=== PATIENT | female | born 1965 | race Caucasian/White ===

== ENCOUNTER 2023-04-18 07:48 | Emergency (ER) | payer BC, SELFPAY ==
[2023-04-18 07:51] VITALS: BP 133/78
[2023-04-18 08:17] VITALS: BMI 32.6
[2023-04-18] MEDS: NSS 1000 IV (09:08)
[2023-04-18] MEDS: ZOFRAN 4 MG IV (09:09)
[2023-04-18] MEDS: TORADOL 15 MG IV ×2 (09:09→11:53)
--- NOTE | 2023-04-18 09:16 | ED.GENMED ---
History of Present Illness
General
Chief Complaint: Abdominal Symptoms
Source: patient and spouse
Exam Limitations: none
Time Seen by Provider: 04/18/23 07:57
Nursing documentation reviewed up to this point in time: agreed with
Travel History
Have you had any contact with someone who has COVID-19?: No
Do you have any symptoms of coronavirus? Fever > 100 degrees, chills, cough, shortness of breath, sore throat, loss of taste or smell, muscle aches, or headache?: No
History of Present Illness
History of Present Illness:
57-year-old female with Alexandre history of migraines, kidney stones, endometriosis, asthma presenting to the emergency department today with concerns of bloody urine as well as right-sided flank pain starting this morning. Has had nausea and few
episodes of vomiting. Denies any change in bowel movements denies specific fevers chest pain or shortness of breath. Feels similar to previous episode of kidney stones.
Past History
Past History
ED Past Medical History: Asthma, Hypercholesterolemia, NIDDM and Other (Migraine headaches, Kidney stones, Diverticulosis, pseudotumor cerebri, fibromyalgia, C. difficile, irritable bowel syndrome, sleep apnea Parkinson's.)
ED Past Surgical History: Appendectomy, Cholecystectomy, , Urological (kidney stone remval) and Other (sinus surgery)
Social History
Tobacco: Non-smoker
Alcohol: None
Drug: None
Personal:
Living: with family
Employment: Employed
Family History
Family History: Hypertension and Other (Hypercholesterolemia)
Review of Systems
Review of Systems
Allergies reviewed?: Yes
All Other Systems: ROS reviewed and negative except as documented in HPI and ROS
Phy Exam
Physical Exam
Physical Exam:
GENERAL: Alert , in no apparent distress
EYE: pupils equal and reactive
NECK: Supple, no significant adenopathy.
ENT: o/p clr, mmm.
CARDIAC: Regular rate and rhythm .
LUNGS: Clear breath sounds bilaterally, no acute respiratory distress, no wheezes/rales/rhonchi
ABDOMEN: Soft, without focal tenderness, no r/g, no cvat
NEUROLOGICAL: Alert and oriented, no focal neuro deficits
SKIN: Warm and dry, skin intact.
MUSCULOSKELETAL: No edema, well perfused.
PSYCH: Normal and appropriate interaction.
Course
Orders/Labs/Results
Orders:
Orders
04/18/23 08:05
CT Abd/pel Without Iv Or Oral Urgent
Comment:
Reason For Exam: right flank pain
0.9% Sodium Chloride 1000 ml [Nss] 1,000 ml IV BOLUS
Ketorolac [Toradol] 15 mg IV NOW STA
Ondansetron Injectable [Zofran] 4 mg IV NOW STA
04/18/23 08:39
Urinalysis Reflex To Culture Urgent
Date Specimen was Collected: 04/18/23
Time Specimen was Collected: 08:16
Urine Microscopic Reflex Cult Urgent
Urine Culture Urgent
HENRIK Source: U
Specimen Description:
Date Specimen was Collected: 04/18/23
Time Specimen was Collected: 08:16
04/18/23 08:58
Complete Blood Count/With Diff Urgent
Comprehensive Metabolic Panel Urgent
Lipase Urgent
04/18/23 10:20
Morphine Sulfate 4 mg IV NOW STA
04/18/23 11:41
Ketorolac [Toradol] 15 mg IV NOW STA
Abnormal Lab Results
04/18/23 04/18/23
08:39 08:58
Hct 36.8 L %
(37.0-47.0)
Abs Immat Gran (auto) 0.1 H 10^3/uL
(0-0.05)
Absolute Neuts (auto) 8.2 H 10^3/uL
(1.4-6.5)
Immature Gran % 0.6 H %
(0-0.5)
Neutrophils % 78.2 H %
(42.2-75.2)
Lymphocytes % 14.8 L %
(20.5-51.1)
Chloride 108 H mmol/L
(98-107)
Carbon Dioxide 21 L mmol/L
(22-30)
BUN 22 H mg/dl
(7-17)
Glucose 279 H mg/dl
(70-99)
Urine Ketones Trace A
(Negative)
Ur Occult Blood Reflex 4+ A
(Negative)
Leukocyte Esterase Rfl 1+ A
(Negative)
Urine RBC >100 A /HPF
(0-2)
Urine WBC (Reflex) 11-15 A /HPF
(0-5)
Urine Bacteria (Reflex) Few A
(Negative)
Urine Glucose 1+ A
(Negative)
Urine Albumin (Reflex) 2+ A
(Neg - Trace)
04/18/23 08:58
04/18/23 08:58
Vital Signs
Initial and Last Documented VS:
Initial Vital Signs
Temp Pulse Resp BP Pulse Ox
99.2 F 78 16 133/78 97
04/18/23 07:51 04/18/23 07:51 04/18/23 07:51 04/18/23 07:51 04/18/23 07:51
Last Documented Vital Signs
Temp Pulse Resp BP Pulse Ox
99.2 F 84 16 128/70 95
04/18/23 07:51 04/18/23 10:00 04/18/23 10:00 04/18/23 10:00 04/18/23 10:45
MDM/Problems Addressed
MDM/Problems Addressed:
57-year-old female presenting to the emergency department with concerns of right-sided flank pain starting abruptly this morning additionally has had nausea vomiting and dark urine. On physical examination no specific or reproducible tenderness to
the abdomen or flank. Patient no distress vital signs normal. Patient's sugar level is elevated but otherwise no emergent findings urine with 4+ blood. CT scan confirming right-sided kidney stone in the proximal ureter. Symptoms significantly
improved after receiving Toradol and Zofran. No signs of emergent pathology. Case was discussed with patient's urologist who will see her as an outpatient tomorrow. Patient symptoms well-controlled stable for outpatient management return
precautions given.
*Critical Care Note
Total Time (30-74mins, 75-104mins- exclusive of procedures): Not Applicable
ED Attending Note
-
Portions of this chart may have been created with voice recognition software.� Occasional wrong word or��sound alike� substitutions may have occurred due to the inherent limitations of voice recognition software.
Discharge Plan
Departure
Patient Disposition: Home (Routine Discharge)
Date of Disposition: 04/18/23
Time of Disposition: 11:33
Patient with high blood pressure during this ER visit?: No
Condition: Good
Covid-19: Not Applicable
Discharge Problem:
Calculus, ureteral
Instructions: Kidney Stone, Adult ED
Prescriptions:
New
oxycodone-acetaminophen [Endocet] 5-325 mg tablet
1 tab PO Q6H PRN (Reason: Pain) Qty: 7 0RF
tamsulosin [Flomax] 0.4 mg capsule
0.4 mg PO DAILY 7 Days Qty: 7 0RF
ondansetron 4 mg tablet,disintegrating
4 mg PO Q8H PRN (Reason: nausea and vomiting) Qty: 7 0RF
No Action
hydromorphone 4 MG tablet
2 mg PO Q4HPRN PRN (Reason: migraines)
oxycodone-acetaminophen 5 MG/325 MG tablet
1 tab PO Q4HPRN PRN (Reason: severe pains)
tizanidine 4 MG tablet
4 mg PO HS
trazodone 100 MG tablet
200 - 300 mg PO HS
propranolol 20 MG tablet
20 mg PO HS
dicyclomine 10 MG capsule
10 mg PO DAILYPRN PRN (Reason: abd pains)
Dupixent Syringe 300 MG/2 ML syringe
200 mg SQ Q2W
Aimovig Autoinjector 70 MG/ML auto-injector
70 mg SQ MONTHLY
ketorolac 10 MG tablet
10 mg PO Q6HPRN PRN (Reason: headache) Qty: 20 0RF
diphenoxylate-atropine 1 TABLET tablet
2 tab PO Q4HPRN PRN (Reason: diarrhea)
rosuvastatin 20 MG tablet
20 mg PO QPM
Myrbetriq 25 MG tablet extended release 24 hr
25 mg PO HS
dihydroergotamine [Migranal] 1 ML spray,non-aerosol
4 spray intranasal DAILYPRN PRN (Reason: migraine)
prochlorperazine maleate 5 MG tablet
5 mg PO Q6HPRN PRN (Reason: nausea)
clonazepam 0.5 MG tablet
0.5 mg PO HS
olanzapine 5 MG tablet
5 mg PO DAILYPRN PRN (Reason: migraines)
ergocalciferol (vitamin D2) 50,000 UNITS capsule
50,000 units PO FR
lisinopril 2.5 MG tablet
2.5 mg PO HS
carbidopa-levodopa 50-200 mg Tablet Extended Release
1 tab PO HS
ondansetron [Zofran ODT] 8 mg Tablet,Disintegrating
8 mg PO [id number] PRN (Reason: migraines)
zonisamide 100 mg Capsule
100 mg PO HS
methenamine hippurate [Hiprex] 1 gram Tablet
1 g PO Q12H
mexiletine 250 mg Capsule
250 mg PO Q8H
sumatriptan [Imitrex] 20 mg/actuation [place],Non-Aerosol
20 mg INTRANASAL Q2H PRN (Reason: migraines)
carbidopa-levodopa 25-100 mg Tablet
1.5 tab PO TID
Excedrin Migraine 250-250-65 mg Tablet
1 tab PO DAILYPRN PRN (Reason: migraines)
Ocuvite Tablet
2 tab PO DAILY
cyclosporine [Restasis] 0.05 % [place]
1 drp BOTH EYES Q12H
fenofibrate nanocrystallized 145 mg Tablet
145 mg PO QPM
Humalog KwikPen Insulin 200 unit/mL (3 mL) Insulin Pen
14 sliding scale dose SC AC
Ubrelvy 100 mg Tablet
100 mg PO DAILYPRN PRN (Reason: migraines)
Referrals:
Kimberlyn Vera MD [Family Provider] -
Marcos Hurtado MD [Active] - Tomorrow (2:15)
Activity Restrictions/Additional Instructions:
You came to the emergency department today and you were found to have a kidney stone. Please follow-up with your urologist tomorrow at 215. In the meantime you can take your prescribed Toradol as well as Percocet for discomfort, Zofran for nausea
and Flomax to help with passage. Please stay hydrated return for any progressive symptoms.
Interventions
Interventions:
*Risk Screen - Suicide Last Done: 04/18/23 08:17
*General Assessment Last Done: 04/18/23 08:17
*Neglect/Abuse Screening Last Done: 04/18/23 08:17
ED- Fall Risk Assessment Last Done: 04/18/23 08:17
*ED COVID-19 Vaccine History Last Done: 04/18/23 07:51
TI-Flrhyy-Borecinnyq Assessment Last Done: 04/18/23 08:17
[2023-04-18 09:18] LABS: % Basophils 0.7 % (0-2); % Eosinophils 2.2 % (0-6); % Immature Granulocytes 0.6 % (0-0.5); % Lymphocytes 14.8 % (20.5-51.1); % Monocytes 3.5 % (1.7-9.3); % Neutrophils 78.2 % (42.2-75.2); Absolute Basophils 0.1 10^3/uL (0-0.2); Absolute Eosinophils 0.2 10^3/uL (0-0.7); Absolute Immature Granulocytes 0.1 10^3/uL (0-0.05); Absolute Lymphocytes 1.6 10^3/uL (1.2-3.4); Absolute Monocytes 0.4 10^3/uL (0.1-0.6); Absolute Neutrophils 8.2 10^3/uL (1.4-6.5); Hematocrit 36.8 % (37.0-47.0); Hemoglobin 12.5 g/dL (12.0-16.0); Mean Corpuscular Hgb 27.8 pg (27.0-31.0); Mean Corpuscular Volume 81.8 fL (81.0-99.0); Mean Platelet Volume 9.3 fL (7.4-10.4); Nucleated Red Blood Cells % 0 %; Platelet Count 321 10^3/uL (130-400); White Blood Cell Count 10.5 10^3/uL (4.8-10.8)
[2023-04-18 09:19] LABS: Urine Albumin 2+ (Neg - Trace); Urine Bilirubin Negative (Negative); Urine Character Very Cloudy (Clear); Urine Color Amber; Urine Glucose 1+ (Negative); Urine Ketone Trace (Negative); Urine Leukocyte 1+ (Negative); Urine Nitrite Negative (Negative); Urine Occult Blood 4+ (Negative); Urine Specific Gravity 1.025 (<1.030); Urine Urobilinogen Negative (Neg - 1+)
[2023-04-18 09:32] LABS: ALT (SGPT) 34 U/L (0-35); AST (SGOT) 33 U/L (14-36); Albumin 4.2 g/dl (3.5-5.0); Alkaline Phosphatase 81 U/L (38-126); Blood Urea Nitrogen 22 mg/dl (7-17); Calcium 9.6 mg/dl (8.4-10.2); Carbon Dioxide 21 mmol/L (22-30); Chloride 108 mmol/L (98-107); Estimated Creatinine Clearance 81 ml/min; Glucose 279 mg/dl (70-99); Lipase 258 U/L (23-300); Potassium 4.5 mmol/L (3.5-5.1); Sodium 137 mmol/L (135-145); Total Bilirubin 0.4 mg/dl (0.2-1.3); Total Protein 6.6 g/dl (6.3-8.2); eGFR > 60.00
[2023-04-18 09:36] LABS: Urine Calcium Oxalate Crystals Present; Urine Red Blood Cell >100 /HPF (0-2)
[2023-04-18 09:37] LABS: Urine Bacteria Few (Negative)
[2023-04-18 09:50] LABS: Urine Urothelial Cell 0-2 /LPF (FEW)
[2023-04-18 09:52] VITALS: BP 121/71
[2023-04-18 09:53] VITALS: BP 121/71
[2023-04-18 10:00] VITALS: BP 128/70
[2023-04-18] MEDS: MORPHINE SULFATE 4 MG IV (10:45)
== END 2023-04-18 12:27 | disposition home or self-care (01) ==
LOC: EMR 07:48
PROVIDERS: Physician Assistant; EMERGENCY PHYSICIAN Emergency Medicine; FAMILY PHYSICIAN Internal Medicine
DX: N20.2 Calculus of kidney with calculus of ureter (principal); Z87.442 Personal history of urinary calculi
CPT/HCPCS: 99284; 96374; 96375 ×2; 96361; 96376; 74176; 80053; 81003; 81015; 83690; 85025; 87086

== ENCOUNTER 2023-04-23 06:34 | Day surgery (SDC) | payer BC, SELFPAY ==
[2023-04-23] VITALS (9 sets, daily range): BP systolic 90–135; BP diastolic 46–69; BMI 32.3
[2023-04-23 13:21] LABS: Glucose - Point of Care 182 mg/dl (70-99)
[2023-04-23] MEDS: NORMOSOL-R 1000 IV (13:33)
[2023-04-23 13:50] LABS: INR 1.01; PT 13.1 Sec (11.4-14.6)
[2023-04-23 13:51] LABS: APTT 26.1 Sec (23.4-35.0)
[2023-04-23] MEDS: ZOFRAN 4 MG IV (17:08)
[2023-04-23 17:14] LABS: Glucose - Point of Care 164 mg/dl (70-99)
[2023-04-23] MEDS: DILAUDID 0.5 MG IV (17:34)
[2023-04-23] MEDS: Pyridium 200 MG PO (17:36)
[2023-04-24 06:29] LABS: Glucose - Point of Care 140 mg/dl (70-99)
[2023-04-27 20:14] LABS: Stone Analysis Mass 6 mg
== END 2023-04-23 19:41 | disposition home or self-care (01) ==
LOC: SDS 06:34
PROVIDERS: ATTENDING PHYSICIAN Specialist
DX: N13.2 Hydronephrosis with renal and ureteral calculous obstruction (principal); N23 Unspecified renal colic
CPT/HCPCS: 52356; 74018; 76000; 82365; 82962; 85610; 85730; C2617; J1580

== ENCOUNTER 2023-04-27 05:06 | Inpatient (IN) | payer BC, SELFPAY ==
[2023-04-26 22:54] VITALS: BMI 33.7
[2023-04-26 23:01] VITALS: BP 178/79
[2023-04-26] MEDS: TYLENOL 1000 MG PO (23:23)
[2023-04-27] VITALS (20 sets, daily range): BP systolic 118–154; BP diastolic 55–82; PULSE 90; BMI 33.7
[2023-04-27 00:19] LABS: ALT (SGPT) 52 U/L (0-35); AST (SGOT) 39 U/L (14-36); Albumin 4.2 g/dl (3.5-5.0); Alkaline Phosphatase 94 U/L (38-126); Blood Urea Nitrogen 21 mg/dl (7-17); Calcium 10.1 mg/dl (8.4-10.2); Carbon Dioxide 20 mmol/L (22-30); Chloride 107 mmol/L (98-107); Estimated Creatinine Clearance 83 ml/min; Glucose 169 mg/dl (70-99); Lactic Acid 2.2 mmol/L (0.7-2.0); Potassium 4.1 mmol/L (3.5-5.1); Sodium 137 mmol/L (135-145); Total Bilirubin 0.7 mg/dl (0.2-1.3); Total Protein 6.9 g/dl (6.3-8.2); eGFR > 60.00
[2023-04-27 00:28] LABS: Urine Albumin 1+ (Neg - Trace); Urine Bilirubin 2+ (Negative); Urine Character Slightly Cloudy (Clear); Urine Color Amber; Urine Glucose Negative (Negative); Urine Ketone Negative (Negative); Urine Leukocyte 2+ (Negative); Urine Nitrite Positive (Negative); Urine Occult Blood 4+ (Negative); Urine Specific Gravity 1.015 (<1.030); Urine Urobilinogen 3+ (Neg - 1+)
[2023-04-27 00:32] LABS: % Basophils 0.7 % (0-2); % Eosinophils 2.7 % (0-6); % Immature Granulocytes 0.5 % (0-0.5); % Lymphocytes 13.7 % (20.5-51.1); % Monocytes 9.5 % (1.7-9.3); % Neutrophils 72.9 % (42.2-75.2); Absolute Basophils 0.1 10^3/uL (0-0.2); Absolute Eosinophils 0.3 10^3/uL (0-0.7); Absolute Immature Granulocytes 0.1 10^3/uL (0-0.05); Absolute Lymphocytes 1.5 10^3/uL (1.2-3.4); Absolute Monocytes 1.1 10^3/uL (0.1-0.6); Absolute Neutrophils 8.2 10^3/uL (1.4-6.5); Hematocrit 34.4 % (37.0-47.0); Hemoglobin 11.6 g/dL (12.0-16.0); Mean Corp Hgb Conc. 33.7 g/dL (33.0-37.0); Mean Corpuscular Hgb 27.6 pg (27.0-31.0); Mean Corpuscular Volume 81.7 fL (81.0-99.0); Mean Platelet Volume 8.9 fL (7.4-10.4); Nucleated Red Blood Cells % 0 %; Platelet Count 348 10^3/uL (130-400); Red Blood Cell Count 4.21 10^6/uL (4.20-5.40); Red Cell Dist. Width 13.8 % (11.5-14.5); White Blood Cell Count 11.2 10^3/uL (4.8-10.8)
[2023-04-27 00:46] LABS: Urine Red Blood Cell 60-70 /HPF (0-2)
[2023-04-27 00:47] LABS: Urine Bacteria Many (Negative); Urine White Cell >100 /HPF (0-5)
--- NOTE | 2023-04-27 01:43 | ED.GENMED ---
History of Present Illness
<ARTHUR Chambers - Last Filed: 04/27/23 04:46>
General
Chief Complaint: Fever
Source: patient
Exam Limitations: none
Time Seen by Provider: 04/27/23 01:31
Nursing documentation reviewed up to this point in time: agreed with
Travel History
Have you had any contact with someone who has COVID-19?: No
Do you have any symptoms of coronavirus? Fever > 100 degrees, chills, cough, shortness of breath, sore throat, loss of taste or smell, muscle aches, or headache?: Yes
Symptoms:: fever
History of Present Illness
History of Present Illness:
This is a 57 year old female, with a PMH of migraines, kidney stones, fibromyalgia, endometriosis, and asthma, presenting to the ED with concerns of a fever x couple hours. Pt states she had a right ureteral stent with lithotripsy 3 days ago and had
the stent removed this afternoon in the office. This evening, she began vomiting her dinner with an associated temperature of 100.6F and chills. Pt states she last took ibuprofen 12 hours ago, prior to her fever starting. She adds that she is also
experiencing right sided abdominal and back pain since the procedure and a SERRATO. Pt spoke with the urologist induction brazer who recommended she come to the ER. Pt denies any CP, SOB, diarrhea, constipation, lightheadedness, dizziness, cough, or dysuria. She
has also had urinary frequency and urgency.
Pt denies alcohol, drug, or tobacco use. Pt adds that she had a similar procedure 10 years ago and ended up being hospitalized with a kidney infection for 2 weeks. Her symptoms today feel very similar to this past hospitalization.
Past History
<ARTHUR Chambers - Last Filed: 04/27/23 04:46>
Past History
ED Past Medical History: Asthma, Hypercholesterolemia, NIDDM and Other (Migraine headaches, Kidney stones, Diverticulosis, pseudotumor cerebri, fibromyalgia, C. difficile, irritable bowel syndrome, sleep apnea Parkinson's.)
ED Past Surgical History: Appendectomy, Cholecystectomy, , Urological (kidney stone remval) and Other (sinus surgery)
Social History
Tobacco: Non-smoker
Alcohol: None
Drug: None
Personal:
Living: with family
Employment: Employed
Family History
Family History: Hypertension and Other (Hypercholesterolemia)
Review of Systems
<ARTHUR Chambers - Last Filed: 04/27/23 04:46>
Review of Systems
Allergies reviewed?: Yes
All Other Systems: ROS reviewed and negative except as documented in HPI and ROS
Constitutional: Reports fever and chills
EENT: Reports no symptoms
Respiratory: Reports no symptoms; Denies cough or trouble breathing
Cardiac: Reports no symptoms; Denies chest pain
ABD/GI: Reports abdominal pain and vomiting; Denies diarrhea or constipated
: Reports frequency, flank pain, urgency and bleeding; Denies dysuria
Musculoskeletal: Reports no symptoms
Skin: Reports no symptoms
Neurological: Reports headache; Denies dizzy
Psychiatric: Reports no symptoms
Phy Exam
<Brandon Webb [facility] - Last Filed: 04/27/23 04:46>
General Physical Exam
General Presentation: mild distress
General age: appears stated age
General Skin: warm and dry
General Habitus: obese
General Mental: alert
General Hydration: appears well hydrated
ENT Exam
ENT Exam: neck supple, normocephalic and swallowing well
Cardiovascular Exam
Cardiovascular Exam: regular rate/rhythm, no edema, no murmur and normal peripheral pulses
Heart Sounds: normal
Pulmonary Exam
Pulmonary Exam: lungs clear, no respiratory distress, no rales, no crackles, no rhonchi, no wheezing and no cough
Gastrointestinal Exam
Gastrointestinal Exam: normal bowel sounds, soft, cva tenderness (right sided), tender (mild tenderness to palpation right lower quadrant) and other (no guarding, rebound or rigidity)
Neurological Exam
Neurological Exam: alert and oriented x3
Musculoskeletal Exam
Musculoskeletal Exam: full ROM and no edema
Skin Exam
Skin Exam: normal color and warm/dry
Psychiatric Exam
Psychiatric Exam: normal mood/affect
Course
<ARTHUR Chambers - Last Filed: 04/27/23 04:46>
Orders/Labs/Results
Orders:
Orders
04/26/23 23:20
Acetaminophen [Tylenol] 1,000 mg PO NOW STA
04/26/23 23:31
Electrocardiogram (*1) Urgent
Reason for Study: Other
Other Reason for Exam: Possible Sepsis
Cardiac Monitoring- Treatment ONCE
EKG- Treatment ONCE
IV Insert/Care/Rem.- Treatment PRN
Urinalysis Reflex To Culture Urgent
Date Specimen was Collected: 04/26/23
Time Specimen was Collected: 23:31
O2 Therapy [RESP] Urgent
Titrate/Wean O2 to maintain O2 sat greater than (%): 93
Special Instructions: TO MAINTAIN CONTINUOUS O2 SATS > OR = 93%
Pulse Ox/cont/shift [RESP] Urgent
Quantity: 1
Special Instructions: CONTINUOUS
04/26/23 23:54
Complete Blood Count/With Diff Urgent
Comprehensive Metabolic Panel Urgent
Lactic Acid Q4H
Comment: ON ICE, CANCEL 2ND ORDER IF FIRST LACTIC ACID LEVEL <2
Blood Culture Q30M
HENRIK Source: Blood/Venous
Specimen Description:
Comment: FROM 2 SEPARATE SITES
04/27/23
CR Abdomen - 1 View Urgent
Reason For Exam: CYSTO RT STONE, STENT PLACEMENT
RF Fluoroscopy, C-arm Urgent
Reason For Exam: CYSTO RT STENT PLACEMENT
04/27/23 00:16
Urine Microscopic Reflex Cult Urgent
Urine Culture Urgent
HENRIK Source: U
Specimen Description:
Date Specimen was Collected: 04/26/23
Time Specimen was Collected: 23:31
04/27/23 01:04
Blood Culture Q30M
HENRIK Source: Blood/Venous
Specimen Description:
Comment: FROM 2 SEPARATE SITES
04/27/23 01:46
Ketorolac [Toradol] 30 mg IV NOW STA
04/27/23 02:04
0.9% Sodium Chloride 1000 ml [Nss] 1,000 ml IV BOLUS
HYDROmorphone [Dilaudid] 1 mg IV NOW STA
LevoFLOXacin 500 MG/100 ML [Levaquin] 500 mg in 100 ml IV NOW
Ondansetron Injectable [Zofran] 4 mg IV NOW STA
04/27/23 02:05
CT Abd/pel Without Iv Or Oral Urgent
Comment:
Reason For Exam: R flank pain, recent lithotripsy and stent removal
04/27/23 03:15
Consult Urology [UROLOGY CONSULT] Urgent
Consulting Provider: Flex Bob
Was physician already notified: Yes
04/27/23 03:44
HYDROmorphone [Dilaudid] 0.25 mg IV PACU-Q5MPRN PRN
HYDROmorphone [Dilaudid] 0.5 mg IV PACU-Q5MPRN PRN
Meperidine [Demerol] 12.5 mg IV PACU-Q5MPRN PRN
Ondansetron Injectable [Zofran] 4 mg IV PACU-ONCEPRN PRN
Notify MD As Directed
Notify physician if: for SDS patients with known or suspected sleep obstructive sleep apnea, monitor in the
PACU.
Notify MD for any apneic/desaturation episodes
O2 Therapy [RESP] Urgent
Titrate/Wean O2 to maintain O2 sat greater than (%): 92
Special Instructions: -Provide supplemental oxygen to achieve O2 sat of 92% or greater.
-After 15 min, may wean O2 and discontinue if patient is able to maintain O2 sat of 92%
or greater during recovery period.
If patient is a discharge home, without oxygen therapy, notify anestheiologist if
unable to maintain O2 SAT of 92% or greater on room air for MD clearance.
04/27/23 03:45
Lactic Acid Q4H
Comment: ON ICE, CANCEL 2ND ORDER IF FIRST LACTIC ACID LEVEL <2
Normosol (Mult Electrolytes) [Normosol-R] 1,000 ml IV PER PROTOCOL
04/27/23 03:58
Fentanyl Citrate/Pf [Sublimaze] 100 mcg .ROUTE .STK-MED ONE
04/27/23 04:13
Dexamethasone Sod Phosphate [Decadron] 20 mg .ROUTE .STK-MED ONE
Lidocaine HCl/Pf [Xylocaine-Mpf 1% Vial] 50 mg .ROUTE .STK-MED ONE
Ondansetron Injectable [Zofran] 4 mg .ROUTE .STK-MED ONE
Propofol [Diprivan] 20 ml .ROUTE .STK-MED
04/27/23 04:43
Dextrose 50%-Water [Dextrose 50% Syringe] 12.5 grams IV PACU/SDS-PRN PRN
Insulin Aspart [NOVOLOG vial] See Protocol SC PACU/SDS- Q2H PRN PRN
Bedside Glucose Monitoring As Directed
Frequency: Q2H
Comment: UNTIL PATIENT LEAVES PACU/SDS
Abnormal Lab Results
04/26/23 04/27/23
23:54 00:16
WBC 11.2 H 10^3/uL
(4.8-10.8)
Hgb 11.6 L g/dL
(12.0-16.0)
Hct 34.4 L %
(37.0-47.0)
Abs Immat Gran (auto) 0.1 H 10^3/uL
(0-0.05)
Absolute Neuts (auto) 8.2 H 10^3/uL
(1.4-6.5)
Absolute Monos (auto) 1.1 H 10^3/uL
(0.1-0.6)
Lymphocytes % 13.7 L %
(20.5-51.1)
Monocytes % 9.5 H %
(1.7-9.3)
Carbon Dioxide 20 L mmol/L
(22-30)
BUN 21 H mg/dl
(7-17)
Glucose 169 H mg/dl
(70-99)
Lactic Acid 2.2 H mmol/L
(0.7-2.0)
AST 39 H U/L
(14-36)
ALT 52 H U/L
(0-35)
Ur Occult Blood Reflex 4+ A
(Negative)
Urine Nitrite (Reflex) Positive A
(Negative)
Urine Bilirubin 2+ A
(Negative)
Urine Urobilinogen 3+ A
(Neg - 1+)
Leukocyte Esterase Rfl 2+ A
(Negative)
Urine RBC 60-70 A /HPF
(0-2)
Urine WBC (Reflex) >100 A /HPF
(0-5)
Urine Bacteria (Reflex) Many A
(Negative)
Urine Albumin (Reflex) 1+ A
(Neg - Trace)
04/26/23 23:54
04/26/23 23:54
Vital Signs
Initial and Last Documented VS:
Initial Vital Signs
Temp Pulse Resp BP Pulse Ox
101.5 F H 94 20 178/79 96
04/26/23 23:01 04/26/23 23:01 04/26/23 23:01 04/26/23 23:01 04/26/23 23:01
Last Documented Vital Signs
Temp Pulse Resp BP Pulse Ox
101.5 F H 96 24 141/75 94
04/26/23 23:01 04/27/23 03:45 04/27/23 03:45 04/27/23 03:35 04/27/23 03:45
<Akbar Andrade, DO - Last Filed: 04/27/23 03:15>
Orders/Labs/Results
Orders:
Orders
04/26/23 23:20
Acetaminophen [Tylenol] 1,000 mg PO NOW STA
04/26/23 23:31
Electrocardiogram (*1) Urgent
Reason for Study: Other
Other Reason for Exam: Possible Sepsis
Cardiac Monitoring- Treatment ONCE
EKG- Treatment ONCE
IV Insert/Care/Rem.- Treatment PRN
Urinalysis Reflex To Culture Urgent
Date Specimen was Collected: 04/26/23
Time Specimen was Collected: 23:31
O2 Therapy [RESP] Urgent
Titrate/Wean O2 to maintain O2 sat greater than (%): 93
Special Instructions: TO MAINTAIN CONTINUOUS O2 SATS > OR = 93%
Pulse Ox/cont/shift [RESP] Urgent
Quantity: 1
Special Instructions: CONTINUOUS
04/26/23 23:54
Complete Blood Count/With Diff Urgent
Comprehensive Metabolic Panel Urgent
Lactic Acid Q4H
Comment: ON ICE, CANCEL 2ND ORDER IF FIRST LACTIC ACID LEVEL <2
Blood Culture Q30M
HENRIK Source: Blood/Venous
Specimen Description:
Comment: FROM 2 SEPARATE SITES
04/27/23
CR Abdomen - 1 View Urgent
Reason For Exam: CYSTO RT STONE, STENT PLACEMENT
RF Fluoroscopy, C-arm Urgent
Reason For Exam: CYSTO RT STENT PLACEMENT
04/27/23 00:16
Urine Microscopic Reflex Cult Urgent
Urine Culture Urgent
HENRIK Source: U
Specimen Description:
Date Specimen was Collected: 02/23/24
Time Specimen was Collected: 23:31
04/27/23 01:04
Blood Culture Q30M
HENRIK Source: Blood/Venous
Specimen Description:
Comment: FROM 2 SEPARATE SITES
04/27/23 01:46
Ketorolac [Toradol] 30 mg IV NOW STA
04/27/23 02:04
0.9% Sodium Chloride 1000 ml [Nss] 1,000 ml IV BOLUS
HYDROmorphone [Dilaudid] 1 mg IV NOW STA
LevoFLOXacin 500 MG/100 ML [Levaquin] 500 mg in 100 ml IV NOW
Ondansetron Injectable [Zofran] 4 mg IV NOW STA
04/27/23 02:05
CT Abd/pel Without Iv Or Oral Urgent
Comment:
Reason For Exam: R flank pain, recent lithotripsy and stent removal
04/27/23 03:15
Consult Urology [UROLOGY CONSULT] Urgent
Consulting Provider: Flex Bob
Was physician already notified: Yes
04/27/23 03:44
HYDROmorphone [Dilaudid] 0.25 mg IV PACU-Q5MPRN PRN
HYDROmorphone [Dilaudid] 0.5 mg IV PACU-Q5MPRN PRN
Meperidine [Demerol] 12.5 mg IV PACU-Q5MPRN PRN
Ondansetron Injectable [Zofran] 4 mg IV PACU-ONCEPRN PRN
Notify MD As Directed
Notify physician if: for SDS patients with known or suspected sleep obstructive sleep apnea, monitor in the
PACU.
Notify MD for any apneic/desaturation episodes
O2 Therapy [RESP] Urgent
Titrate/Wean O2 to maintain O2 sat greater than (%): 92
Special Instructions: -Provide supplemental oxygen to achieve O2 sat of 92% or greater.
-After 15 min, may wean O2 and discontinue if patient is able to maintain O2 sat of 92%
or greater during recovery period.
If patient is a discharge home, without oxygen therapy, notify anestheiologist if
unable to maintain O2 SAT of 92% or greater on room air for MD clearance.
04/27/23 03:45
Lactic Acid Q4H
Comment: ON ICE, CANCEL 2ND ORDER IF FIRST LACTIC ACID LEVEL <2
Normosol (Mult Electrolytes) [Normosol-R] 1,000 ml IV PER PROTOCOL
04/27/23 03:58
Fentanyl Citrate/Pf [Sublimaze] 100 mcg .ROUTE .STK-MED ONE
04/27/23 04:13
Dexamethasone Sod Phosphate [Decadron] 20 mg .ROUTE .STK-MED ONE
Lidocaine HCl/Pf [Xylocaine-Mpf 1% Vial] 50 mg .ROUTE .STK-MED ONE
Ondansetron Injectable [Zofran] 4 mg .ROUTE .STK-MED ONE
Propofol [Diprivan] 20 ml .ROUTE .STK-MED
04/27/23 04:43
Dextrose 50%-Water [Dextrose 50% Syringe] 12.5 grams IV PACU/SDS-PRN PRN
Insulin Aspart [NOVOLOG vial] See Protocol SC PACU/SDS- Q2H PRN PRN
Bedside Glucose Monitoring As Directed
Frequency: Q2H
Comment: UNTIL PATIENT LEAVES PACU/SDS
Abnormal Lab Results
04/26/23 04/27/23
23:54 00:16
WBC 11.2 H 10^3/uL
(4.8-10.8)
Hgb 11.6 L g/dL
(12.0-16.0)
Hct 34.4 L %
(37.0-47.0)
Abs Immat Gran (auto) 0.1 H 10^3/uL
(0-0.05)
Absolute Neuts (auto) 8.2 H 10^3/uL
(1.4-6.5)
Absolute Monos (auto) 1.1 H 10^3/uL
(0.1-0.6)
Lymphocytes % 13.7 L %
(20.5-51.1)
Monocytes % 9.5 H %
(1.7-9.3)
Carbon Dioxide 20 L mmol/L
(22-30)
BUN 21 H mg/dl
(7-17)
Glucose 169 H mg/dl
(70-99)
Lactic Acid 2.2 H mmol/L
(0.7-2.0)
AST 39 H U/L
(14-36)
ALT 52 H U/L
(0-35)
Ur Occult Blood Reflex 4+ A
(Negative)
Urine Nitrite (Reflex) Positive A
(Negative)
Urine Bilirubin 2+ A
(Negative)
Urine Urobilinogen 3+ A
(Neg - 1+)
Leukocyte Esterase Rfl 2+ A
(Negative)
Urine RBC 60-70 A /HPF
(0-2)
Urine WBC (Reflex) >100 A /HPF
(0-5)
Urine Bacteria (Reflex) Many A
(Negative)
Urine Albumin (Reflex) 1+ A
(Neg - Trace)
04/26/23 23:54
04/26/23 23:54
Vital Signs
Initial and Last Documented VS:
Initial Vital Signs
Temp Pulse Resp BP Pulse Ox
101.5 F H 94 20 178/79 96
04/26/23 23:01 04/26/23 23:01 04/26/23 23:01 04/26/23 23:01 04/26/23 23:01
Last Documented Vital Signs
Temp Pulse Resp BP Pulse Ox
101.5 F H 96 24 141/75 94
04/26/23 23:01 04/27/23 03:45 04/27/23 03:45 04/27/23 03:35 04/27/23 03:45
<ARTHUR Chambers - Last Filed: 04/27/23 04:46>
*Critical Care Note
Total Time (30-74mins, 75-104mins- exclusive of procedures): Not Applicable
ED Attending Note
<ARTHUR Chambers - Last Filed: 04/27/23 04:46>
-
Portions of this chart may have been created with voice recognition software.� Occasional wrong word or��sound alike� substitutions may have occurred due to the inherent limitations of voice recognition software.
<Akbar Andrade DO - Last Filed: 04/27/23 03:15>
ED Attending Note
Patient seen and examined by attending physician: Yes
I performed the substantive portion of visit, reviewed & personally made and approve the management plan that is documented in note by myself or KAY.: Yes
ED Attending Note:
I have seen and evaluated the patient with a orav-ft-witi encounter. I have spoken to the advance practicer provider and involved in the medical history, the physical exam, medical decision making.
Evaluation and management service: agree unless noted differently below.
Results interpretation: agree unless noted differently below.
Focused HPI: 57-year-old female presenting for evaluation of right flank pain and fevers. This is associate with increased urination. Patient recently had lithotripsy and she had her ureter stent removed in the office today. She called the
urology office and was sent to the emergency department for evaluation
Physical exam: Uncomfortable, right flank pain, skin warm
Medical Decision Making: Patient has evidence of pyelonephritis with flank pain and fever. Given recent lithotripsy and stent removal, will obtain CT looking for evidence of obstructive stone pathology. Patient started on Levaquin and given pain
medicine. Will ultimately admit given the fever and pyelonephritis
Update 3:15 AM: Urology contacted me indicating that the CT is concerning for obstructive stone. Given the fever, urology will bring to the OR for stent.
Discharge Plan
Departure
Patient Disposition: Admit
Date of Disposition: 04/27/23
Time of Disposition: 03:15
Admit to: OR
Presentation/result/management discussed w/ accepting MD/DO: Hospitalist
Discharge Problem:
Kidney stone, Pyelonephritis
Prescriptions:
No Action
hydromorphone 4 MG tablet
2 mg PO Q4HPRN PRN (Reason: migraines)
oxycodone-acetaminophen 5 MG/325 MG tablet
1 tab PO Q4HPRN PRN (Reason: severe pains)
tizanidine 4 MG tablet
4 mg PO HS
trazodone 100 MG tablet
100 mg PO HS
propranolol 20 MG tablet
20 mg PO HS
dicyclomine 10 MG capsule
10 mg PO DAILYPRN PRN (Reason: abd pains)
Dupixent Syringe 300 MG/2 ML syringe
200 mg SQ Q2W
Aimovig Autoinjector 70 MG/ML auto-injector
70 mg SQ MONTHLY
ketorolac 10 MG tablet
10 mg PO Q6HPRN PRN (Reason: headache) Qty: 20 0RF
diphenoxylate-atropine 1 TABLET tablet
2 tab PO Q4HPRN PRN (Reason: diarrhea)
rosuvastatin 20 MG tablet
20 mg PO QPM
Myrbetriq 25 MG tablet extended release 24 hr
25 mg PO HS
dihydroergotamine [Migranal] 1 ML spray,non-aerosol
4 spray intranasal DAILYPRN PRN (Reason: migraine)
prochlorperazine maleate 5 MG tablet
5 mg PO Q6HPRN PRN (Reason: nausea)
clonazepam 0.5 MG tablet
1 mg PO HS
olanzapine 5 MG tablet
5 mg PO DAILYPRN PRN (Reason: migraines)
ergocalciferol (vitamin D2) 50,000 UNITS capsule
50,000 units PO FR
lisinopril 2.5 MG tablet
2.5 mg PO HS
carbidopa-levodopa 50-200 mg Tablet Extended Release
1 tab PO HS
ondansetron [Zofran ODT] 8 mg Tablet,Disintegrating
8 mg PO [id number] PRN (Reason: migraines)
zonisamide 100 mg Capsule
100 mg PO HS
methenamine hippurate [Hiprex] 1 gram Tablet
1 g PO Q12H
mexiletine 250 mg Capsule
500 mg PO BID
sumatriptan [Imitrex] 20 mg/actuation [place],Non-Aerosol
20 mg INTRANASAL Q2H PRN (Reason: migraines)
carbidopa-levodopa 25-100 mg Tablet
1.5 tab PO TID
Excedrin Migraine 250-250-65 mg Tablet
1 tab PO DAILYPRN PRN (Reason: migraines)
Ocuvite Tablet
2 tab PO QPM
cyclosporine [Restasis] 0.05 % Dropperette
1 drp BOTH EYES Q12H
fenofibrate nanocrystallized 145 mg Tablet
145 mg PO QPM
Humalog KwikPen Insulin 200 unit/mL (3 mL) Insulin Pen
14 - 22 sliding scale dose SC AC
Ubrelvy 100 mg Tablet
100 mg PO DAILYPRN PRN (Reason: migraines)
ondansetron 4 mg tablet,disintegrating
4 mg PO Q8H PRN (Reason: nausea and vomiting) Qty: 7 0RF
tamsulosin [Flomax] 0.4 mg capsule
0.4 mg PO QPM
ibuprofen 800 mg Tablet
800 mg PO Q6H PRN (Reason: pain)
Referrals:
Kimberlyn Vera MD [Family Provider] -
Interventions
Interventions:
*Risk Screen - Suicide Last Done: 04/26/23 23:01
*General Assessment Last Done: 04/26/23 23:01
*Neglect/Abuse Screening Last Done: 04/26/23 23:01
ED- Fall Risk Assessment Last Done: 04/26/23 23:01
*ED COVID-19 Vaccine History Last Done: 04/26/23 23:01
*Nursing Disposition Last Done: 04/27/23 04:04
ED- Neurological Assessment Last Done: 04/27/23 00:21
ED-Skin Assessment Last Done: 04/27/23 00:21
Discharge Date and Time
Discharge Date/Time: 04/27/23 04:08
[2023-04-27] MEDS: TORADOL 30 MG IV (01:54)
[2023-04-27] MEDS: ZOFRAN 4 MG IV (02:21)
[2023-04-27] MEDS: NSS 1000 IV ×4 (02:22→22:14)
[2023-04-27] MEDS: DILAUDID 1 MG IV (02:22)
[2023-04-27] MEDS: LEVAQUIN 100 IV (02:28)
--- NOTE | 2023-04-27 03:40 | CONS.URO ---
Consultation
-
Performing Provider: Margaritafer
Reason for Consultation: Sepsis, obstructing ureteral stone
Medical History
History of Present Illness
57F hx of R ESWL earlier this week and ureteral stent removal Saturday
Shortly after stent removal she developed worsening R flank pain
earlier this evening this progressed to fevers and she called the answering service
I suggested she go to the ER for eval
Febrile and tachycardic with mild lactic acidosis on admission and CT showed fragmented but persistently obstructive R ureteral stones
Past Medical History
Past Medical History: Other (Asthma, Hypercholesterolemia, NIDDM and Other (Migraine headaches, Kidney stones, Diverticulosis, pseudotumor cerebri, fibromyalgia, C. difficile, irritable bowel syndrome, sleep apnea Parkinson's)
Past Surgical History: Appendectomy, Cholecystectomy and Urological
Social History
Tobacco: Non-smoker
Alcohol: None
Drug: None
Family History
Family History: Reviewed & Not Pertinent
Allergies/Home Medications
Allergies
Allergy/AdvReac Type Severity Reaction Status Date / Time
cefaclor [From Ceclor] Allergy Rash Verified 04/26/23 23:00
Cephalosporins Allergy Swelling Verified 04/26/23 23:00
cobalt Allergy Rash Verified 04/26/23 23:00
moxifloxacin HCl Allergy bloody Verified 04/26/23 23:00
[From Avelox] diarrhea
Penicillins Allergy Swelling Verified 04/26/23 23:00
Sulfa (Sulfonamide Allergy CHEST Verified 04/26/23 23:00
Antibiotics) PAIN,
THROAT
SWELLING
tetracycline Allergy Swelling Verified 04/26/23 23:00
topiramate [From Topamax] Allergy Rash Verified 04/26/23 23:00
trimethoprim Allergy Patient Verified 04/26/23 23:00
unaware of
allergy
Home Medications
Medication Instructions Recorded Confirmed Type
hydromorphone 4 mg tablet 2 mg PO Q4HPRN PRN migraines 03/12/13 04/23/23 History
oxycodone-acetaminophen 5 mg-325 1 tab PO Q4HPRN PRN severe pains 02/03/15 04/23/23 History
mg tablet
tizanidine 4 mg tablet 4 mg PO HS 02/08/15 04/23/23 History
dicyclomine 10 mg capsule 10 mg PO DAILYPRN PRN abd pains 12/15/17 04/23/23 History
propranolol 20 mg tablet 20 mg PO HS 12/15/17 04/23/23 History
trazodone 100 mg tablet 100 mg PO HS 12/15/17 04/23/23 History
dupilumab 300 mg/2 mL subcutaneous 200 mg SQ Q2W 07/17/19 04/23/23 History
syringe (Dupixent)
erenumab-aooe 70 mg/mL 70 mg SQ MONTHLY 07/17/19 04/23/23 History
subcutaneous auto-injector
(Aimovig Autoinjector)
ketorolac 10 mg tablet 10 mg PO Q6HPRN PRN headache #20 07/17/19 04/23/23 Rx
tabs
diphenoxylate-atropine 2.5 2 tab PO Q4HPRN PRN diarrhea 09/07/20 04/23/23 History
mg-0.025 mg tablet
mirabegron 25 mg tablet,extended 25 mg PO HS 09/07/20 04/23/23 History
release 24 hr (Myrbetriq)
rosuvastatin 20 mg tablet 20 mg PO QPM 09/07/20 04/23/23 History
clonazepam 0.5 mg tablet 1 mg PO HS 06/04/21 04/23/23 History
dihydroergotamine 0.5 mg/pump act. 4 spray intranasal DAILYPRN PRN 06/04/21 04/23/23 History
(4 mg/mL) nasal spray (Migranal) migraine
ergocalciferol (vitamin D2) 1,250 50,000 units PO FR 06/04/21 04/23/23 History
mcg (50,000 unit) capsule
lisinopril 2.5 mg tablet 2.5 mg PO HS 06/04/21 04/23/23 History
olanzapine 5 mg tablet 5 mg PO DAILYPRN PRN migraines 06/04/21 04/23/23 History
prochlorperazine maleate 5 mg 5 mg PO Q6HPRN PRN nausea 06/04/21 04/23/23 History
tablet
lylgvda-bgkcpuemsgjoz-ogcqsdlb 250 1 tab PO DAILYPRN PRN migraines 04/18/23 04/23/23 History
mg-250 mg-65 mg tablet (Excedrin
Migraine)
carbidopa 25 mg-levodopa 100 mg 1.5 tab PO TID 04/18/23 04/23/23 History
tablet
carbidopa ER 50 mg-levodopa 200 mg 1 tab PO HS 04/18/23 04/23/23 History
tablet,extended release
cyclosporine 0.05 % eye drops in a 1 drp BOTH EYES Q12H 04/18/23 04/23/23 History
dropperette (Restasis)
fenofibrate nanocrystallized 145 145 mg PO QPM 04/18/23 04/23/23 History
mg tablet
insulin lispro 200 unit/mL (3 mL) 14 - 22 sliding scale dose SC AC 04/18/23 04/23/23 History
subcutaneous pen (Humalog KwikPen
U-200 Insulin)
methenamine hippurate 1 gram 1 g PO Q12H 04/18/23 04/23/23 History
tablet (Hiprex)
mexiletine 250 mg capsule 500 mg PO BID 04/18/23 04/23/23 History
ondansetron 4 mg disintegrating 4 mg PO Q8H PRN nausea and 04/18/23 04/23/23 Rx
tablet vomiting #7 tabs
ondansetron 8 mg disintegrating 8 mg PO [id number] PRN migraines 04/18/23 04/23/23 History
tablet
sumatriptan 20 mg/actuation nasal 20 mg intranasal Q2H PRN migraines 04/18/23 04/23/23 History
spray
ubrogepant 100 mg tablet (Ubrelvy) 100 mg PO DAILYPRN PRN migraines 04/18/23 04/23/23 History
vitamin A-vitamin C-vit E-min 2 tab PO QPM 04/18/23 04/23/23 History
tablet
zonisamide 100 mg capsule 100 mg PO HS 04/18/23 04/23/23 History
tamsulosin 0.4 mg capsule (Flomax) 0.4 mg PO QPM 04/22/23 04/23/23 History
ibuprofen 800 mg tablet 800 mg PO Q6H PRN pain 04/23/23 04/23/23 History
Physical Exam
Vital Signs
Vital Signs
Temp Pulse Resp BP Pulse Ox
101.5 F H 101 22 141/75 95
04/26/23 23:01 04/27/23 03:35 04/27/23 03:35 04/27/23 03:35 04/27/23 03:35
Lab / Testing Results
Laboratory Results
04/26/23 23:54
04/26/23 23:54
Physical Exam
General: Well Developed, Well Nourished and No Apparent Distress
GI: Soft and Non Tender
Genito-urinary: No Costovertebral Tend
Neuro: AO x 3
Psych: Calm and Intact Judgement
Assessment / Plan
-
57F with sepsis and obstructing R ureteral stone fragments s/p recent ESWL
- OR for R ureteral stent placement
- F/U cultures
- Broad spectrum abx
- Follow up for after discharge to arrange ureteroscopic stone removal
--- NOTE | 2023-04-27 04:27 | W.IMMPOSTOP ---
Surgical Immed Post Op Note
-
Primary Surgeon: Margaritafer
Assisting Surgeon: -
Pre-op Diagnosis: R ureteral stone, sepsis
Post-op Diagnosis: same
Procedure Performed: cysto, R stent
Anesthesia Type: general
Specimen / Cultures: none
Estimated Blood Loss: none
Complications: none
Operative Findings: stent placed, noted drainage of obstructed system, mild visible purulence
[2023-04-27 04:55] LABS: Glucose - Point of Care 160 mg/dl (70-99)
[2023-04-27] MEDS: DILAUDID 0.25 MG IV ×2 (05:15→05:27)
--- NOTE | 2023-04-27 05:24 | HPS.HSE ---
Family Physician
-
Family Physician: Kimberlyn Vera
Chief Complaint
-
Fever, Flank Pain
History of Present Illness
Patient is a 57y F with PMH significant for migraine headaches, DM-II, fibromyalgia and nephrolithiasis who presents to ED complaining of R flank pain and fevers / chills. Patient was seen at on 04/23 for laser lithotripsy and placement of R
ureteral stent. She tolerated this well and was seen in the office on 04/26 for stent removal. Unfortunately, later that evening patient developed increasing R flank pain followed by fevers and shaking chills. She called Urology estate conservator and was
advised to present to the ED for evaluation.
Patient underwent CT which showed persistent R ureteral obstruction secondary to collection of stones in the mid-right ureter.
Patient was seen by Urology and taken promptly to the OR for re-placement of R ureteral stent. She tolerated that procedure well and is seen and examined in the PACU.
Patient notes some continued R flank and lower abdominal discomfort. No nausea / emesis. No current chills.
Medical History
Past Medical History
Past Medical History: Reports Other
Additional Past Medical History:
Chronic Migraine Headaches
Fibromyalgia
Nephrolithiasis
Parkinsonism
DM-II
GERD
Asthma
ALL on CPAP
Endometriosis
DDD
Past Surgical History: Reports Other
Additional Past Surgical History:
Ureteroscopy / Stone Extraction / Stents
Cholecystectomy
Appendectomy
Sinus Surgery
Social History
Tobacco: Non-smoker
Alcohol: None
Drug: None
Family History
Family History: Other (Mother: Migraines, PMR, DM-II Sister: Migraines)
Allergies / Home Medications
Allergies reflects when Allergies were last updated in [facility].
Home Medications with original date entered in [facility]
Allergy/Medication List:
Allergies
Allergy/AdvReac Type Severity Reaction Status Date / Time
cefaclor [From Ceclor] Allergy Rash Verified 04/26/23 23:00
Cephalosporins Allergy Swelling Verified 04/26/23 23:00
cobalt Allergy Rash Verified 04/26/23 23:00
moxifloxacin HCl Allergy bloody Verified 04/26/23 23:00
[From Avelox] diarrhea
Penicillins Allergy Swelling Verified 04/26/23 23:00
Sulfa (Sulfonamide Allergy CHEST Verified 04/26/23 23:00
Antibiotics) PAIN,
THROAT
SWELLING
tetracycline Allergy Swelling Verified 04/26/23 23:00
topiramate [From Topamax] Allergy Rash Verified 04/26/23 23:00
trimethoprim Allergy Patient Verified 04/26/23 23:00
unaware of
allergy
Home Medications
hydromorphone 4 mg tablet 2 mg PO Q4HPRN PRN migraines 03/12/13
oxycodone-acetaminophen 5 mg-325 mg tablet 1 tab PO Q4HPRN PRN severe pains 02/03/15
tizanidine 4 mg tablet 4 mg PO HS 02/08/15
dicyclomine 10 mg capsule 10 mg PO DAILYPRN PRN abd pains 12/15/17
propranolol 20 mg tablet 20 mg PO BID 12/15/17
trazodone 100 mg tablet 100 mg PO HS 12/15/17
dupilumab 300 mg/2 mL subcutaneous syringe (Dupixent) 200 mg SQ Q2W 07/17/19
erenumab-aooe 70 mg/mL subcutaneous auto-injector (Aimovig Autoinjector) 70 mg SQ MONTHLY 07/17/19
ketorolac 10 mg tablet 10 mg PO Q6HPRN PRN headache #20 tabs 07/17/19
mirabegron 25 mg tablet,extended release 24 hr (Myrbetriq) 25 mg PO HS 09/07/20
rosuvastatin 20 mg tablet 20 mg PO QPM 09/07/20
clonazepam 0.5 mg tablet 1 mg PO HS 06/04/21
ergocalciferol (vitamin D2) 1,250 mcg (50,000 unit) capsule 50,000 units PO FR 06/04/21
lisinopril 2.5 mg tablet 2.5 mg PO HS 06/04/21
olanzapine 5 mg tablet 5 mg PO DAILYPRN PRN migraines 06/04/21
prochlorperazine maleate 5 mg tablet 5 mg PO Q6HPRN PRN nausea 06/04/21
carbidopa 25 mg-levodopa 100 mg tablet 1.5 tab PO TID 04/18/23
carbidopa ER 50 mg-levodopa 200 mg tablet,extended release 1 tab PO HS 04/18/23
cyclosporine 0.05 % eye drops in a dropperette (Restasis) 1 drp BOTH EYES Q12H 04/18/23
insulin lispro 200 unit/mL (3 mL) subcutaneous pen (Humalog KwikPen U-200 Insulin) 14 - 22 sliding scale dose SC AC 04/18/23
methenamine hippurate 1 gram tablet (Hiprex) 1 g PO Q12H 04/18/23
mexiletine 250 mg capsule 500 mg PO BID 04/18/23
ondansetron 4 mg disintegrating tablet 4 mg PO Q8H PRN nausea and vomiting #7 tabs 04/18/23
sumatriptan 20 mg/actuation nasal spray 20 mg intranasal Q2H PRN migraines 04/18/23
ubrogepant 100 mg tablet (Ubrelvy) 100 mg PO DAILYPRN PRN migraines 04/18/23
zonisamide 100 mg capsule 100 mg PO HS 04/18/23
tamsulosin 0.4 mg capsule (Flomax) 0.4 mg PO QPM 04/22/23
ibuprofen 800 mg tablet 800 mg PO Q6H PRN pain 04/23/23
insulin degludec 100 unit/mL (3 mL) subcutaneous pen (Tresiba FlexTouch U-100 insulin) 90 unit SC HS 04/27/23
meclizine 25 mg tablet 25 mg PO TID PRN Dizziness 04/27/23
metformin 500 mg tablet,extended release 24 hr 500 mg PO TID 04/27/23
vit C 250 mg-vit E 90 mg-zinc 40 mg-copper 1 [id number]-cusrnu-qsfsyo capsule (PreserVision AREDS-2) 1 tab PO BID 04/27/23
Review of Systems
-
History Source: Patient
A 12 point ROS was completed and negative except as noted: Yes
Constitutional: Reports Fever, Fatigue and Chills
EENT: Denies Sore Throat
Respiratory: Denies Cough or Trouble Breathing
Cardiac: Denies Chest Pain or Palpitations
Abdomen/GI: Reports Abdominal Pain and Nausea; Denies Vomiting, Diarrhea, Constipated, Bloody Stools or Black Stools
: Reports Flank Pain; Denies Dysuria
Musculoskeletal: Reports Other (Back Pain); Denies Joint Pain or Edema
Neurological: Denies Dizzy or Headache
Psych: Denies Depression or Anxiety
Physical Exam
Vital Signs
Vital Signs
Temp Pulse Resp BP Pulse Ox
98.5 F 89 23 141/72 96
04/27/23 04:30 04/27/23 05:09 04/27/23 05:09 04/27/23 04:45 04/27/23 05:09
Physical Exam
General: Other (57y F in mild distress due to pain.)
HEENT: Other (Thick neck / rounded facies.)
Respiratory: Clear; No Wheezes, Rales or Rhonchi
Cardiac: S1/S2 and Regular Rhythm; No Murmur
GI: Other (Obese, not tender, pos BS.)
Musculoskeletal: No Clubbing, No Cyanosis and No Edema
Neuro: AO x 3
Laboratory Results
-
04/26/23 23:54
04/26/23 23:54
Laboratory Results
Lactic Acid 2.2 mmol/L (0.7-2.0) H 04/26/23 23:54
Total Bilirubin 0.7 mg/dl (0.2-1.3) 04/26/23 23:54
AST 39 U/L (14-36) H 04/26/23 23:54
ALT 52 U/L (0-35) H 04/26/23 23:54
Alkaline Phosphatase 94 U/L (38-126) 04/26/23 23:54
Impression/Plan
-
A/P: Patient is a 57y F with PMH significant for chronic migraines, DM-II and nephrolithiasis s/p recent lithotripsy and stent who presents to ED complaining of R flank pain and fevers / chills.
Right Ureterolithiasis
Obstructive Uropathy secondary to the above
UTI secondary to the above
Sepsis secondary to the above
- Admit for further evaluation and treatment.
- Patient presents with fever, leukocytosis, mild lactic acidosis and clinical evidence for UTI.
- Obstruction addressed with prompt OR / ureteroscopy and stent replacement by Urology.
- Some purulent urine was appreciated during procedure.
- Continue IV abx. Will use Azactam for now given allergy profile.
- Follow-up culture data and adjust as needed. Consider ID evaluation.
- Appreciate Urology consult / intervention.
- Post-op pain control, IVFs, antiemetics, etc.
- Follow for clinical improvement.
DM-II
- Stable. Continue basal : bolus insulin regimen.
- Will err on lower side of dosing to start and adjust as needed. SSI coverage as needed.
- Update A1C.
Migraine Headaches
Fibromyalgia
Chronic Pain Syndrome
Polypharmacy
- Patient on myriad medications with similar purpose / mechanism and adjusts dose / frequency as needed.
- Will try to minimize non-essential or duplicate medications.
- Follow for any new / breakthrough symptoms.
- Follow-up with PCP as an outpatient for further adjustments as needed.
Parkinsonism
- Continue current Sinemet dosing without changes.
Morbid Obesity due to excess calories
ALL on CPAP
- Affects all aspects of care.
- Encourage healthy diet and increased activity with goal of weight loss.
- Patient brought own CPAP from home for use during stay.
DVT Prophylaxis: Lovenox
Code Status: Full
--- NOTE | 2023-04-27 06:18 | PTCARENOTE ---
Pt arrive to unit from PACU @0600, VSS on 2 L O2 via N/C cont pulse ox in place per order. Pt AAx3 able to make needs known, reports chronic pain with back and migraines and acute pain abdomen with flank. Pt oriented to room and hospital policies
call king within reach
[2023-04-27] MEDS: AZACTAM 1000 MG IV ×3 (06:27→22:14)
[2023-04-27] MEDS: STERILE WATER FOR INJECTION 10 ML IV ×3 (06:28→22:17)
[2023-04-27] MEDS: RESTASIS 0.05% OPHTHALMIC EMULSION 1 DROPS BOTH EYES ×2 (06:36→17:21)
[2023-04-27 06:50] LABS: Hematocrit 33.3 % (37.0-47.0); Hemoglobin 11.1 g/dL (12.0-16.0); Mean Corp Hgb Conc. 33.3 g/dL (33.0-37.0); Mean Corpuscular Hgb 27.3 pg (27.0-31.0); Mean Platelet Volume 8.7 fL (7.4-10.4); Platelet Count 278 10^3/uL (130-400); Red Blood Cell Count 4.06 10^6/uL (4.20-5.40); Red Cell Dist. Width 13.9 % (11.5-14.5); White Blood Cell Count 11.1 10^3/uL (4.8-10.8)
[2023-04-27 06:56] LABS: Lactic Acid 1.3 mmol/L (0.7-2.0)
[2023-04-27 07:13] LABS: Blood Urea Nitrogen 19 mg/dl (7-17); Calcium 9.1 mg/dl (8.4-10.2); Carbon Dioxide 21 mmol/L (22-30); Chloride 109 mmol/L (98-107); Estimated Creatinine Clearance 95 ml/min; Glucose 193 mg/dl (70-99); Potassium 4.7 mmol/L (3.5-5.1); Sodium 136 mmol/L (135-145); eGFR > 60.00
[2023-04-27 07:41] LABS: Glucose - Point of Care 232 mg/dl (70-99)
[2023-04-27] MEDS: NOVOLOG FLEXPEN-MODERATE RESISTANCE 3 UNITS SC (08:19)
[2023-04-27] MEDS: NOVOLOG FLEXPEN 10 UNITS SC (08:20)
[2023-04-27] MEDS: MEXITIL 500 MG PO ×2 (08:21→19:28)
[2023-04-27] MEDS: SINEMET 25-100 1.5 TABLET PO ×2 (08:21→16:19)
[2023-04-27] MEDS: INDERAL 20 MG PO ×2 (08:22→19:28)
[2023-04-27] MEDS: COMPAZINE 5 MG IV ×2 (08:32→13:24)
--- NOTE | 2023-04-27 10:57 | W.PN.HOSP.TC ---
Today's Communication/Plan
-
see A/P
Assessment / Plan
Assessment / Plan
HPI: 57y F with PMH significant for migraine headaches, DM-II, fibromyalgia and nephrolithiasis who presented to ED complaining of R flank pain and fevers / chills.�Patient was seen at on 04/23 for laser lithotripsy and placement of R ureteral
stent.�She tolerated this well and was seen in the office on 04/26 for stent removal.�Unfortunately, later that evening patient developed increasing R flank pain followed by fevers and shaking chills.�She called Urology insolvency practitioner and was advised to
present to the ED for evaluation.
Patient underwent CT which showed persistent R ureteral obstruction secondary to collection of stones in the mid-right ureter.
Patient was seen by Urology and taken promptly to the OR for re-placement of R ureteral stent. She tolerated that procedure well.
Patient noted some continued R flank and lower abdominal discomfort.�No nausea / emesis.� No current chills.
CT AP:
1. � MODERATE ACUTE RIGHT HYDROURETERONEPHROSIS secondary to adjacent 5 mm and 4 mm obstructing calculi in the right mid ureter.
2. � Mild right perinephric and periureteral inflammation suggesting acute right pyelonephritis and right ureteritis.
3. � Mild diffuse urinary bladder wall thickening and perivesical inflammation suggesting acute cystitis.
4. � Mild hepatosplenomegaly.
5. � Previous cholecystectomy and appendectomy.
A/P:
# Right Ureterolithiasis
# Obstructive Uropathy secondary to the above
# Complicated UTI secondary to the above
# Sepsis POA secondary to the above
# Resolved mild lactic acidosis
s/p prompt OR / ureteroscopy and stent replacement by Urology on admission 04/26.
Follow urine and blood culture
Continue IV abx Azactam (noted several Abx allergies)
Consider ID evaluation.
Appreciate Urology consult / intervention.
Post-op pain control, IVFs, antiemetics, etc.
Follow for clinical improvement.
# DM-II�- Stable.�
Continue basal : bolus insulin regimen.
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
SSI coverage as needed.
Follow A1C.
# Migraine Headaches
# Fibromyalgia
# Chronic Pain Syndrome
# Polypharmacy
Patient on myriad medications with similar purpose / mechanism and adjusts dose / frequency as needed.
Agree to try to minimize non-essential or duplicate medications.
Follow for any new / breakthrough symptoms.
Follow-up with PCP as an outpatient for further adjustments as needed.
# Parkinsonism
Continue current Sinemet dosing without changes.
# Obesity due to excess calories
# ALL on CPAP
Affects all aspects of care.
Encourage healthy diet and increased activity with goal of weight loss.
Patient brought own CPAP from home for use during stay.
DVT Prophylaxis: Lovenox SQ
Code Status: Full
Anticipated Discharge: 24 - 48 hours
Subjective/Interval History
-
Date of Service: April 27, 2023
Objective Data
-
Labs:
Laboratory Results
04/26/23 04/27/23
23:54 06:36
WBC 11.2 H 11.1 H
Hgb 11.6 L 11.1 L
Hct 34.4 L 33.3 L
Plt Count 348 278 D
Sodium 137 136
Potassium 4.1 4.7
Chloride 107 109 H
Carbon Dioxide 20 L 21 L
BUN 21 H 19 H
Creatinine 0.8 0.7
Glucose 169 H 193 H
Calcium 10.1 9.1
Total Bilirubin 0.7
AST 39 H
ALT 52 H
Alkaline Phosphatase 94
Vital Signs:
Vital Signs
Temp Pulse Resp BP Pulse Ox
37.1 C 82 16 127/67 97
04/27/23 07:22 04/27/23 08:22 04/27/23 07:22 04/27/23 08:22 04/27/23 07:22
I&O
04/26/23 04/27/23 04/28/23
06:59 06:59 06:59
Intake Total 100 / 100
Balance 100 / 100
Review of Systems
-
All other systems: Reviewed and negative
Physical Exam
-
General: Well Developed, Well Nourished, No Apparent Distress, Comfortable, Conversant and Obese
HEENT: Normocephalic, Atraumatic, Nose Appears Normal and Ears Appear Normal
Respiratory: Clear to Auscultation and Non Labored Respirations; Negative Accessory Resp Muscle Use
Cardiac: Regular Rhythm and S1/S2
GI: Soft, Nontender, Nondistended and Normal Bowel Sounds
Skin: Warm and Dry
Neuro: Awake and Alert
Psych: Calm and Intact Judgement/Insight
Data Reviewed
-
CT Scan: Report Reviewed by me
Labs: Labs Reviewed by me
[2023-04-27] MEDS: PERCOCET 5/325 2 TABLET PO (11:05)
[2023-04-27 11:10] LABS: Glycohemoglobin (HgbA1c) 8.3 % (4.0-5.6)
--- NOTE | 2023-04-27 11:39 | W.PN.URO.CBU ---
Today's Communication / Plan
-
Continue antibiotic pending cultures
Assessment / Plan
-
57F with fever/sepsis and obstructing R ureteral stone fragments s/p recent ESWL
- s/p OR overnight 04/27 for R ureteral stent placement
- F/U cultures
- Broad spectrum abx
- Added standing pyridium and lower threshold for IV dilaudid per patient request
- Follow up for after discharge to arrange ureteroscopic stone removal
Diagnosis
-
Date of Service: April 27, 2023
-
Patient Diagnosis:
Sepsis/fever
Obstructing ureteral stone
Post Op Day: s/p R stent placement 04/27
Subjective
-
pain controlled/improved
voiding without difficulty
Objective
-
Vital Signs
Temp Pulse Resp BP Pulse Ox
98.2 F 86 16 144/76 93
04/27/23 11:24 04/27/23 11:24 04/27/23 11:24 04/27/23 11:24 04/27/23 11:24
Intake and Output
04/26/23 04/27/23 04/28/23
06:59 06:59 06:59
Intake Total 100 / 100
Balance 100 / 100
Intake:
IV fluids (Total) 100 / 100
NSS 0 / 0
Normosol 100 / 100
Laboratory Results
04/27/23 06:36
04/27/23 06:36
Physical Exam
-
General - well developed, well nourished, no acute distress
Chest - clear bilaterally
Abdomen - soft, non-tender
Skin - warm & dry with no rash
Neuro - AOx3
Extremities - no clubbing, no cyanosis, no edema
--- NOTE | 2023-04-27 11:40 | CM ---
Reviewed the chart notes and spoke with the patient at the bedside. The patient resides with her spouse in a two story home with two steps to enter. The patient has a cane she uses out in the community and a CPAP machine for bedtime. The patient
reports on VN or SNF in the past. The patient anticipates being discharged to home with no additional needs being identified at this time. CM continues to be available to patient/family and is monitoring medical plan for needs at discharge.
Plan: Discharge to home when medically stable.
[2023-04-27 12:07] LABS: Glucose - Point of Care 313 mg/dl (70-99)
[2023-04-27] MEDS: NOVOLOG FLEXPEN 12 UNITS SC ×2 (12:18→17:20)
[2023-04-27] MEDS: NOVOLOG FLEXPEN-MODERATE RESISTANCE 7 UNITS SC ×2 (12:18→17:20)
[2023-04-27] MEDS: Pyridium 100 MG PO ×2 (16:18→22:17)
[2023-04-27 17:17] LABS: Glucose - Point of Care 328 mg/dl (70-99)
[2023-04-27] MEDS: CRESTOR 20 MG PO (17:21)
[2023-04-27] MEDS: LOVENOX 40 MG SC (17:21)
[2023-04-27] MEDS: FLOMAX 0.400000000000000022 MG PO (17:21)
[2023-04-27] MEDS: DILAUDID 0.5 MG IV (19:27)
[2023-04-27 22:14] LABS: Glucose - Point of Care 246 mg/dl (70-99)
[2023-04-27] MEDS: DESYREL 150 MG PO (22:17)
[2023-04-27] MEDS: LANTUS 0.699999999999999956 UNITS SC (22:17)
[2023-04-27] MEDS: KLONOPIN 1 MG PO (22:19)
[2023-04-27] MEDS: ZONEGRAN 100 MG PO (22:19)
[2023-04-27] MEDS: SINEMET CR 50/200 (EXTENDED RELEASE) 1 TABLET PO (22:19)
[2023-04-27] MEDS: SINEMET 25-100 PO (22:25)
[2023-04-28 03:05] VITALS: BP 127/75
[2023-04-28] MEDS: DILAUDID 0.5 MG IV ×2 (03:41→17:17)
[2023-04-28 05:14] LABS: Hematocrit 31.9 % (37.0-47.0); Hemoglobin 10.3 g/dL (12.0-16.0); Mean Corp Hgb Conc. 32.3 g/dL (33.0-37.0); Mean Corpuscular Hgb 27.2 pg (27.0-31.0); Mean Corpuscular Volume 84.4 fL (81.0-99.0); Mean Platelet Volume 8.9 fL (7.4-10.4); Platelet Count 273 10^3/uL (130-400); Red Blood Cell Count 3.78 10^6/uL (4.20-5.40); Red Cell Dist. Width 14.3 % (11.5-14.5); White Blood Cell Count 10.7 10^3/uL (4.8-10.8)
[2023-04-28 05:22] VITALS: BMI 32.9
[2023-04-28 05:40] LABS: Blood Urea Nitrogen 22 mg/dl (7-17); Calcium 9.1 mg/dl (8.4-10.2); Carbon Dioxide 21 mmol/L (22-30); Chloride 105 mmol/L (98-107); Estimated Creatinine Clearance 93 ml/min; Glucose 192 mg/dl (70-99); Potassium 4.4 mmol/L (3.5-5.1); Sodium 136 mmol/L (135-145); eGFR > 60.00
[2023-04-28] MEDS: AZACTAM 1000 MG IV ×3 (05:54→20:28)
[2023-04-28] MEDS: STERILE WATER FOR INJECTION 10 ML IV ×3 (05:55→20:28)
[2023-04-28 07:43] LABS: Glucose - Point of Care 204 mg/dl (70-99)
[2023-04-28 07:45] VITALS: BP 115/67
[2023-04-28] MEDS: NOVOLOG FLEXPEN-MODERATE RESISTANCE 3 UNITS SC (08:40)
[2023-04-28] MEDS: RESTASIS 0.05% OPHTHALMIC EMULSION 1 DROPS BOTH EYES ×2 (08:41→17:10)
[2023-04-28] MEDS: NOVOLOG FLEXPEN 12 UNITS SC (08:41)
[2023-04-28] MEDS: MEXITIL 500 MG PO ×2 (08:42→20:27)
[2023-04-28] MEDS: SINEMET 25-100 1.5 TABLET PO ×3 (08:42→17:09)
[2023-04-28] MEDS: Pyridium 100 MG PO ×3 (08:42→20:30)
[2023-04-28] MEDS: INDERAL 20 MG PO ×2 (08:42→20:27)
[2023-04-28] MEDS: NSS 1000 IV (10:24)
--- NOTE | 2023-04-28 10:49 | W.PN.HOSP.TC ---
Today's Communication/Plan
-
see A/P
Assessment / Plan
Assessment / Plan
HPI: 57y F with PMH significant for migraine headaches, DM-II, fibromyalgia and nephrolithiasis who presented to ED complaining of R flank pain and fevers / chills.�Patient was seen at on 04/23 for laser lithotripsy and placement of R ureteral
stent.�She tolerated this well and was seen in the office on 04/26 for stent removal.�Unfortunately, later that evening patient developed increasing R flank pain followed by fevers and shaking chills.�She called Urology cardiopulmonary technician and eeg tech and was advised to
present to the ED for evaluation.
Patient underwent CT which showed persistent R ureteral obstruction secondary to collection of stones in the mid-right ureter.
Patient was seen by Urology and taken promptly to the OR for re-placement of R ureteral stent. She tolerated that procedure well.
Patient noted some continued R flank and lower abdominal discomfort.�No nausea / emesis.� No current chills.
CT AP:
1. � MODERATE ACUTE RIGHT HYDROURETERONEPHROSIS secondary to adjacent 5 mm and 4 mm obstructing calculi in the right mid ureter.
2. � Mild right perinephric and periureteral inflammation suggesting acute right pyelonephritis and right ureteritis.
3. � Mild diffuse urinary bladder wall thickening and perivesical inflammation suggesting acute cystitis.
4. � Mild hepatosplenomegaly.
5. � Previous cholecystectomy and appendectomy.
A/P:
# Right Ureterolithiasis
# Obstructive Uropathy secondary to the above
# Complicated UTI secondary to the above
# Sepsis POA secondary to the above
# Resolved mild lactic acidosis
s/p prompt OR / ureteroscopy and stent replacement by Urology on admission 04/26.
Urine Cx with E coli
Blood culture negative
Continue IV abx Azactam (noted several Abx allergies)
Consider ID evaluation.
Appreciate Urology consult / intervention.
Post-op pain control, IVFs, antiemetics, etc.
Follow for clinical improvement.
# DM-II�- Stable.�
Continue basal bolus insulin regimen.
Readjust Lantus to 80 units HS (VENTILATION MECHANIC on Tresiba 90 units HS), and Lispro to 20 units AC
SSI coverage as needed.
A1C 8.3 %
VENTILATION MECHANIC Metformin on hold
# Migraine Headaches
# Fibromyalgia
# Chronic Pain Syndrome
# Polypharmacy
Patient on myriad medications with similar purpose / mechanism and adjusts dose / frequency as needed. Agree to try to minimize non-essential or duplicate medications.
Follow-up with PCP as an outpatient for further adjustments as needed.
# Parkinsonism
Continue current Sinemet dosing without changes.
# Obesity due to excess calories
# ALL on CPAP
Affects all aspects of care.
Encourage healthy diet and increased activity with goal of weight loss.
Patient brought own CPAP from home for use during stay.
DVT Prophylaxis: Lovenox SQ
Code Status: Full
Anticipated Discharge: 24 - 48 hours
Subjective/Interval History
-
Date of Service: April 28, 2023
Objective Data
-
Labs:
Laboratory Results
04/28/23
04:59
WBC 10.7
Hgb 10.3 L
Hct 31.9 L
Plt Count 273
Sodium 136
Potassium 4.4
Chloride 105
Carbon Dioxide 21 L
BUN 22 H
Creatinine 0.7
Glucose 192 H
Calcium 9.1
Vital Signs:
Vital Signs
Temp Pulse Resp BP Pulse Ox
36.9 C 85 16 115/67 93
04/28/23 07:45 04/28/23 07:45 04/28/23 07:45 04/28/23 07:45 04/28/23 07:45
I&O
04/27/23 04/28/23 04/29/23
06:59 06:59 06:59
Intake Total / 0 / 2759
Balance / 2759 / 2759
Review of Systems
-
All other systems: Reviewed and negative
Physical Exam
-
General: Well Developed, Well Nourished, No Apparent Distress, Comfortable, Conversant and Obese
HEENT: Normocephalic, Atraumatic, Nose Appears Normal and Ears Appear Normal
Respiratory: Clear to Auscultation and Non Labored Respirations; Negative Accessory Resp Muscle Use
Cardiac: Regular Rhythm and S1/S2
GI: Soft, Nontender, Nondistended and Normal Bowel Sounds
Skin: Warm and Dry
Neuro: Awake and Alert
Psych: Calm and Intact Judgement/Insight
Data Reviewed
-
CT Scan: Report Reviewed by me
Labs: Labs Reviewed by me
--- NOTE | 2023-04-28 10:53 | W.PN.URO.CBU ---
Today's Communication / Plan
-
Continue abx
Follow up cultures
Assessment / Plan
-
57F with fever/sepsis and obstructing R ureteral stone fragments s/p recent ESWL
- s/p OR 04/27 for R ureteral stent placement
- F/U cultures - E coli in urine
- Continue antibiotics pending culture results
- Added standing pyridium and lower threshold for IV dilaudid per patient request
- Okay to add NSAID for stent pain PRN
- Follow up for after discharge to arrange ureteroscopic stone removal
Diagnosis
-
Date of Service: April 28, 2023
-
Patient Diagnosis:
Sepsis/fever
Obstructing ureteral stone
Post Op Day: s/p R stent placement 04/27
Subjective
-
no issues overnight
tolerating stent
Objective
-
Vital Signs
Temp Pulse Resp BP Pulse Ox
98.4 F 85 16 115/67 93
04/28/23 07:45 04/28/23 07:45 04/28/23 07:45 04/28/23 07:45 04/28/23 07:45
Intake and Output
04/27/23 04/28/23 04/29/23
06:59 06:59 06:59
Intake Total 100 / 100 2760 / 2760
Balance 100 / 100 2760 / 2760
Intake:
Oral fluids 1560 / 1560
IV fluids (Total) 100 / 100 1200 / 1200
NSS 0 / 0
Normosol 100 / 100
Other:
Number of approximated SMALL 3
amounts of urine
Number of approximated MODERATE 3
amounts of urine
Laboratory Results
04/28/23 04:59
04/28/23 04:59
Physical Exam
-
General - well developed, well nourished, no acute distress
Chest - clear
Abdomen - soft, non-tender
Skin - warm & dry with no rash
Neuro - AOx3
[2023-04-28 11:15] VITALS: BP 138/73
[2023-04-28 11:23] LABS: Glucose - Point of Care 171 mg/dl (70-99)
[2023-04-28] MEDS: COMPAZINE 5 MG IV ×2 (11:36→17:32)
[2023-04-28] MEDS: NOVOLOG FLEXPEN 20 UNITS SC ×2 (12:25→17:10)
[2023-04-28] MEDS: NOVOLOG FLEXPEN-MODERATE RESISTANCE 1 UNITS SC (12:25)
[2023-04-28] MEDS: MOTRIN 200 MG PO ×2 (12:27→20:30)
--- NOTE | 2023-04-28 13:31 | VATNOTE ---
Right arm with bruising and swelling from previous reported IV infiltrate. Patient notes area to be sore, but states swelling is improving.
[2023-04-28 15:40] VITALS: BP 138/76
[2023-04-28 16:55] LABS: Glucose - Point of Care 136 mg/dl (70-99)
[2023-04-28] MEDS: LOVENOX 40 MG SC (17:09)
[2023-04-28] MEDS: CRESTOR 20 MG PO (17:10)
[2023-04-28] MEDS: FLOMAX 0.400000000000000022 MG PO (17:10)
[2023-04-28] MEDS: NOVOLOG FLEXPEN-MODERATE RESISTANCE SC (17:11)
[2023-04-28 19:30] VITALS: BP 122/65
[2023-04-28 19:36] LABS: Glucose - Point of Care 135 mg/dl (70-99)
[2023-04-28] MEDS: DESYREL 150 MG PO (20:29)
[2023-04-28] MEDS: ZONEGRAN 100 MG PO (20:29)
[2023-04-28] MEDS: SINEMET CR 50/200 (EXTENDED RELEASE) 1 TABLET PO (20:29)
[2023-04-28] MEDS: KLONOPIN 1 MG PO (20:30)
[2023-04-28] MEDS: LANTUS 0.800000000000000044 UNITS SC (20:48)
[2023-04-28 21:56] LABS: Glucose - Point of Care 177 mg/dl (70-99)
[2023-04-28 23:08] VITALS: BP 116/51
[2023-04-29] MEDS: COMPAZINE 5 MG IV ×2 (01:34→08:11)
[2023-04-29 05:15] LABS: Hematocrit 32.8 % (37.0-47.0); Hemoglobin 10.7 g/dL (12.0-16.0); Mean Corp Hgb Conc. 32.6 g/dL (33.0-37.0); Mean Corpuscular Hgb 27.1 pg (27.0-31.0); Mean Platelet Volume 8.8 fL (7.4-10.4); Platelet Count 274 10^3/uL (130-400); Red Blood Cell Count 3.95 10^6/uL (4.20-5.40); Red Cell Dist. Width 14.1 % (11.5-14.5); White Blood Cell Count 7.4 10^3/uL (4.8-10.8)
[2023-04-29 05:28] LABS: Blood Urea Nitrogen 17 mg/dl (7-17); Calcium 9.7 mg/dl (8.4-10.2); Carbon Dioxide 24 mmol/L (22-30); Chloride 104 mmol/L (98-107); Estimated Creatinine Clearance 93 ml/min; Glucose 92 mg/dl (70-99); Potassium 4.2 mmol/L (3.5-5.1); Sodium 137 mmol/L (135-145); eGFR > 60.00
[2023-04-29] MEDS: AZACTAM 1000 MG IV (05:57)
[2023-04-29] MEDS: RESTASIS 0.05% OPHTHALMIC EMULSION 1 DROPS BOTH EYES (05:57)
[2023-04-29] MEDS: STERILE WATER FOR INJECTION 10 ML IV (05:57)
[2023-04-29 06:00] VITALS: BMI 32.0
[2023-04-29 07:33] LABS: Glucose - Point of Care 92 mg/dl (70-99)
[2023-04-29] MEDS: NOVOLOG FLEXPEN-MODERATE RESISTANCE SC (07:41)
[2023-04-29 08:05] VITALS: BP 121/55
[2023-04-29] MEDS: MOTRIN 200 MG PO (08:10)
[2023-04-29] MEDS: Pyridium 100 MG PO (08:11)
[2023-04-29] MEDS: MEXITIL 500 MG PO (08:11)
[2023-04-29] MEDS: INDERAL 20 MG PO (08:12)
[2023-04-29] MEDS: NOVOLOG FLEXPEN 20 UNITS SC (08:12)
[2023-04-29] MEDS: SINEMET 25-100 1.5 TABLET PO (08:12)
--- NOTE | 2023-04-29 09:25 | W.PN.URO.CBU ---
Addendum entered and electronically signed by Flex Bob MD 04/29/23 09:41:
Due to allergies to multiple PO abx, cipro or levaquin are likely best options for continued treatment on discharge
Original Note:
Today's Communication / Plan
-
Outpatient follow up after discharge
continue antibiotic
Assessment / Plan
-
57F with fever/sepsis and obstructing R ureteral stone fragments s/p recent ESWL
- s/p OR 04/27 for R ureteral stent placement
- Culture with gannon-sensitive E coli
- Stable for discharge from standpoint
- Continue antibiotic outpatient - recommend 14 day total abx course for complicated UTI - pencillin, cephalosporin, or Bactrim all appropriate
- Okay to continue pyridium and NSAID PRN for stent pain at home
- Follow up for after discharge to arrange ureteroscopic stone removal
Diagnosis
-
Date of Service: April 29, 2023
-
Patient Diagnosis:
Sepsis/fever
Obstructing ureteral stone
Post Op Day: s/p R stent placement 04/27
Subjective
-
no issues overnight
tolerating stent
Objective
-
Vital Signs
Temp Pulse Resp BP Pulse Ox
97.9 F 71 18 121/55 94
04/29/23 08:05 04/29/23 08:12 04/29/23 08:05 04/29/23 08:12 04/29/23 08:05
Intake and Output
04/28/23 04/29/23 04/30/23
06:59 06:59 06:59
Intake Total 2760 / 2760 2200 / 2200
Output Total 1750 / 1750
Balance 2760 / 2760 450 / 450
Intake:
Oral fluids 1560 / 1560 2200 / 2200
IV fluids (Total) 1200 / 1200
Output:
Urine, Voided 1750 / 1750
Other:
Number of approximated SMALL 3 2
amounts of urine
Number of approximated MODERATE 3 2
amounts of urine
Laboratory Results
04/29/23 04:02
04/29/23 04:02
Physical Exam
-
General - well nourished, no acute distress
Chest - clear
Abdomen - soft
Skin - warm & dry with no rash
Neuro - AOx3
--- NOTE | 2023-04-29 10:01 | W.PN.HOSP.TC ---
Addendum entered and electronically signed by Binta Wayne MD 04/29/23 14:43:
total DC time 40 min
Original Note:
Today's Communication/Plan
-
DC home today
Assessment / Plan
Assessment / Plan
HPI: 57y F with PMH significant for migraine headaches, DM-II, fibromyalgia and nephrolithiasis who presented to ED complaining of R flank pain and fevers / chills.�Patient was seen at on 04/23 for laser lithotripsy and placement of R ureteral
stent.�She tolerated this well and was seen in the office on 04/26 for stent removal.�Unfortunately, later that evening patient developed increasing R flank pain followed by fevers and shaking chills.�She called Urology business applications analyst and was advised to
present to the ED for evaluation.
Patient underwent CT which showed persistent R ureteral obstruction secondary to collection of stones in the mid-right ureter.
Patient was seen by Urology and taken promptly to the OR for re-placement of R ureteral stent. She tolerated that procedure well.
Patient noted some continued R flank and lower abdominal discomfort.�No nausea / emesis.� No current chills.
CT AP:
1. � MODERATE ACUTE RIGHT HYDROURETERONEPHROSIS secondary to adjacent 5 mm and 4 mm obstructing calculi in the right mid ureter.
2. � Mild right perinephric and periureteral inflammation suggesting acute right pyelonephritis and right ureteritis.
3. � Mild diffuse urinary bladder wall thickening and perivesical inflammation suggesting acute cystitis.
4. � Mild hepatosplenomegaly.
5. � Previous cholecystectomy and appendectomy.
A/P:
# Right Ureterolithiasis
# Obstructive Uropathy secondary to the above
# Complicated UTI secondary to the above
# Sepsis POA secondary to the above
# Resolved mild lactic acidosis
s/p prompt OR / ureteroscopy and stent replacement by Urology on admission 04/26.
Urine Cx with gannon-sensitive E coli
Blood culture negative
IV abx Azactam (noted several Abx allergies) -> PO cipro (Pt states that she tolerated Cipro in the past)
Appreciate Urology consult / intervention.
# DM-II�- Stable.�
Continue basal bolus insulin regimen.
Readjust Lantus to 80 units HS (MARKETING TECHNOLOGIST on Tresiba 90 units HS), and Lispro to 20 units AC
SSI coverage as needed.
A1C 8.3 %
MARKETING TECHNOLOGIST Metformin on hold
# Migraine Headaches
# Fibromyalgia
# Chronic Pain Syndrome
# Polypharmacy
Patient on myriad medications with similar purpose / mechanism and adjusts dose / frequency as needed. Agree to try to minimize non-essential or duplicate medications.
Follow-up with PCP as an outpatient for further adjustments as needed.
# Parkinsonism
Continue current Sinemet dosing without changes.
# Obesity due to excess calories
# ALL on CPAP
Affects all aspects of care.
Encourage healthy diet and increased activity with goal of weight loss.
Patient brought own CPAP from home for use during stay.
DVT Prophylaxis: Lovenox SQ
Code Status: Full
Anticipated Discharge: Today
Subjective/Interval History
-
Date of Service: April 29, 2023
Objective Data
-
Labs:
Laboratory Results
04/29/23
04:02
WBC 7.4
Hgb 10.7 L
Hct 32.8 L
Plt Count 274
Sodium 137
Potassium 4.2
Chloride 104
Carbon Dioxide 24
BUN 17
Creatinine 0.7
Glucose 92
Calcium 9.7
Vital Signs:
Vital Signs
Temp Pulse Resp BP Pulse Ox
36.6 C 71 18 121/55 94
04/29/23 08:05 04/29/23 08:12 04/29/23 08:05 04/29/23 08:12 04/29/23 08:05
I&O
04/28/23 04/29/23 04/30/23
06:59 06:59 06:59
Intake Total 0 / 0 2200 / 2200
Output Total 1750 / 1750
Balance 2760 / 2760 450 / 450
Review of Systems
-
All other systems: Reviewed and negative
Physical Exam
-
General: Well Developed, Well Nourished, No Apparent Distress, Comfortable, Conversant and Obese
HEENT: Normocephalic, Atraumatic, Nose Appears Normal and Ears Appear Normal
Respiratory: Clear to Auscultation and Non Labored Respirations; Negative Accessory Resp Muscle Use
Cardiac: Regular Rhythm and S1/S2
GI: Soft, Nontender, Nondistended and Normal Bowel Sounds
Skin: Warm and Dry
Neuro: Awake and Alert
Psych: Calm and Intact Judgement/Insight
Data Reviewed
-
CT Scan: Report Reviewed by me
Labs: Labs Reviewed by me
--- NOTE | 2023-04-29 10:36 | CM ---
Reviewed the chart notes. Patient discharged to home today with no needs identified. Patient's family will provide transportation. CM continues to be available to patient/family and is monitoring medical plan for needs at discharge.
Plan: Discharge to home today.
--- NOTE | 2023-04-29 13:59 | W.DCSUMMARY ---
Discharge Summary
Discharge Data
Date of Admission: 04/27/23
Date of Discharge: 04/29/23
-
Pending Results: No
Hospital Course
Principal Diagnosis:
Right Ureterolithiasis with obstructive uropathy and complicated urinary tract infection (UTI) with pansensitive E. coli
Chronic Diagnoses:�
Insulin-dependent diabetes, A1C at 8.3% this admission
Migraine Headaches
Fibromyalgia
Chronic Pain Syndrome
Parkinsonism on Sinemet
Obesity due to excess calories
Obstructive sleep apnea on CPAP
Consultations:�
Urology
Procedures:�
Emergent ureteroscopy and stent replacement by Urology on admission 04/26.
Clinical course:�
This is a 57-year-old female with past medical history as stated above, who presented with right flank pain and fever following outpatient renal stent removal.
Of note, the patient had laser lithotripsy and stent placement on 04/23/2023.
Her admission CT abdomen pelvis noted MODERATE ACUTE RIGHT HYDROURETERONEPHROSIS secondary to adjacent 5 mm and 4 mm obstructing calculi in the right mid ureter. Also, mild right perinephric and periureteral inflammation suggesting acute right
pyelonephritis and right ureteritis, and mild diffuse urinary bladder wall thickening and perivesical inflammation suggesting acute cystitis.
Problem 1:
Right Ureterolithiasis with obstructive uropathy and complicated urinary tract infection (UTI) with pansensitive E. coli.
She underwent emergent ureteroscopy and right renal stent replacement by Urology on admission 04/26/23.
Her urine culture grew gannon-sensitive E coli. Her blood culture was negative. �
She received IV Azactam during her hospital course due to several antibiotic allergy noted.
Patient stated that she tolerated oral ciprofloxacin previously, so she was discharged with oral Cipro to complete the course of antibiotic treatment (total 14 days).
She can continue to follow-up with urology outpatient.
As for the rest of her medical problems, they were stable during her hospital stay.
Discharge Plan
-
Patient Disposition: Home (Routine Discharge)
Discharge Diagnosis/Procedures: Right kidney stone with obstructive uropathy and complicated urinaty saw infection with pansensitive E coli.
Condition: Good
Diet: As tolerated
Activity: As tolerated
Driving Restrictions: As prior to admission
Activity Restrictions/Additional Instructions:
Continue Cipro for 10 more days. Take probiotic with antibiotic.
Follow up with Urology outpatient
Referrals:
Kimberlyn Vera MD [Family Provider] - in less than 1 week
Prescriptions:
New
ciprofloxacin HCl 500 mg tablet
500 mg PO Q12H 10 Days Qty: 20 0RF
Probiotic 3 billion cell capsule
3,000 mmu cells PO DAILY Qty: 30 0RF
Continued
hydromorphone 4 MG tablet
2 mg PO Q4HPRN PRN (Reason: migraines)
oxycodone-acetaminophen 5 MG/325 MG tablet
1 tab PO Q4HPRN PRN (Reason: severe pains)
tizanidine 4 MG tablet
4 mg PO HS
trazodone 100 MG tablet
100 mg PO HS
Rx Instructions:
Patient takes 1-3 tabs at bedtime.
propranolol 20 MG tablet
20 mg PO BID
dicyclomine 10 MG capsule
10 mg PO DAILYPRN PRN (Reason: abd pains)
Dupixent Syringe 300 MG/2 ML syringe
200 mg SQ Q2W
Aimovig Autoinjector 70 MG/ML auto-injector
70 mg SQ MONTHLY
ketorolac 10 MG tablet
10 mg PO Q6HPRN PRN (Reason: headache) Qty: 20 0RF
rosuvastatin 20 MG tablet
20 mg PO QPM
Myrbetriq 25 MG tablet extended release 24 hr
25 mg PO HS
prochlorperazine maleate 5 MG tablet
5 mg PO Q6HPRN PRN (Reason: nausea)
clonazepam 0.5 MG tablet
1 mg PO HS
olanzapine 5 MG tablet
5 mg PO DAILYPRN PRN (Reason: migraines)
ergocalciferol (vitamin D2) 50,000 UNITS capsule
50,000 units PO FR
lisinopril 2.5 MG tablet
2.5 mg PO HS
carbidopa-levodopa 50-200 mg Tablet Extended Release
1 tab PO HS
zonisamide 100 mg Capsule
100 mg PO HS
methenamine hippurate [Hiprex] 1 gram Tablet
1 g PO Q12H
mexiletine 250 mg Capsule
500 mg PO BID
sumatriptan 20 mg/actuation [place],Non-Aerosol
20 mg INTRANASAL Q2H PRN (Reason: migraines)
carbidopa-levodopa 25-100 mg Tablet
1.5 tab PO TID
cyclosporine [Restasis] 0.05 % Dropperette
1 drp BOTH EYES Q12H
Humalog KwikPen Insulin 200 unit/mL (3 mL) Insulin Pen
14 - 22 sliding scale dose SC AC
Ubrelvy 100 mg Tablet
100 mg PO DAILYPRN PRN (Reason: migraines)
ondansetron 4 mg tablet,disintegrating
4 mg PO Q8H PRN (Reason: nausea and vomiting) Qty: 7 0RF
tamsulosin [Flomax] 0.4 mg capsule
0.4 mg PO QPM
ibuprofen 800 mg Tablet
800 mg PO Q6H PRN (Reason: pain)
meclizine 25 mg Tablet
25 mg PO TID PRN (Reason: Dizziness)
metformin 500 mg Tablet Extended Release 24 Hr
500 mg PO TID
PreserVision AREDS-2 250-90-40-1 mg Capsule
1 tab PO BID
insulin degludec [Tresiba FlexTouch U-100] 100 unit/mL (3 mL) Insulin Pen
90 unit SC HS
Discharge Orders:
Discharge Patient (As Directed); Ordered 04/29/23
Ordered By: Binta Wayne
Discharge Date and Time
Discharge Date/Time: 04/29/23 11:51
== END 2023-04-29 11:51 | disposition home or self-care (01) | DRG 854 ==
LOC: 2 SOUTH 05:06
PROVIDERS: Emergency Medicine; ADMITTING PHYSICIAN Hospitalist; ATTENDING PHYSICIAN Internal Medicine; CONSULT PHYSICIAN Urology; EMERGENCY PHYSICIAN Student in an Organized Health Care Education/Training Program; FAMILY PHYSICIAN Internal Medicine
PROC: 0T768DZ Dilation of Right Ureter with Intraluminal Device, Via Natural or Artificial Opening Endoscopic (ICD-10-PCS; 2023-04-27)
DX: A41.9 Sepsis, unspecified organism (principal); E87.20 Acidosis, unspecified; N20.2 Calculus of kidney with calculus of ureter; N13.6 Pyonephrosis; Z79.84 Long term (current) use of oral hypoglycemic drugs; E11.9 Type 2 diabetes mellitus without complications; G20.A1 Parkinson's disease without dyskinesia, without mention of fluctuations; E66.01 Morbid (severe) obesity due to excess calories; M79.7 Fibromyalgia; B96.20 Unspecified Escherichia coli [E. coli] as the cause of diseases classified elsewhere
CPT/HCPCS: 74018; 74176; 76000; 80048; 80053; 81003; 81015; 82962; 83036; 83605; 85025; 85027; 87040; 87086; 87088; 87186; 93005; 96361; 96365; 96375; 97162; 97165; 99285; C2617

== ENCOUNTER 2023-05-07 06:31 | Day surgery (SDC) | payer BC, SELFPAY ==
[2023-05-07] VITALS (10 sets, daily range): BP systolic 106–130; BP diastolic 56–81; BMI 32.5
[2023-05-07 09:05] LABS: Glucose - Point of Care 207 mg/dl (70-99)
[2023-05-07 09:07] LABS: Urine Albumin 2+ (Neg - Trace); Urine Bilirubin 1+ (Negative); Urine Character Very Cloudy (Clear); Urine Color Amber; Urine Glucose 1+ (Negative); Urine Ketone Trace (Negative); Urine Leukocyte 2+ (Negative); Urine Nitrite Positive (Negative); Urine Occult Blood 4+ (Negative); Urine Urobilinogen 1+ (Neg - 1+)
[2023-05-07 09:15] LABS: Urine Bacteria Many (Negative)
[2023-05-07 09:16] LABS: Urine Red Blood Cell >100 /HPF (0-2)
[2023-05-07] MEDS: NORMOSOL-R 1000 IV (09:16)
[2023-05-07] MEDS: NOVOLOG vial 2 UNITS SC (09:28)
[2023-05-07 10:52] LABS: Glucose - Point of Care 154 mg/dl (70-99)
[2023-05-07] MEDS: SUBLIMAZE 50 MCG IV (11:09)
[2023-05-07] MEDS: SUBLIMAZE 25 MCG IV ×2 (11:20→11:34)
[2023-05-07 12:08] LABS: Glucose - Point of Care 173 mg/dl (70-99)
[2023-05-07] MEDS: ROXICODONE 5 MG PO (12:20)
== END 2023-05-07 13:09 | disposition home or self-care (01) ==
LOC: SDS 06:31
PROVIDERS: ATTENDING PHYSICIAN Specialist
DX: N20.1 Calculus of ureter (principal); Z87.442 Personal history of urinary calculi
CPT/HCPCS: 52320; 52332; 74018; 76000; 81003; 81015; 82962; 87086; C2617; J1580

== ENCOUNTER 2023-05-25 13:41 | Emergency (ER) | payer BC, SELFPAY ==
[2023-05-25 13:43] VITALS: BP 124/61
[2023-05-25 14:47] VITALS: BMI 34.7
[2023-05-25] MEDS: BENADRYL 25 MG IV (15:08)
[2023-05-25] MEDS: NSS 1000 IV (15:08)
[2023-05-25] MEDS: MAGNESIUM SULFATE 100 IV (15:08)
[2023-05-25] MEDS: TORADOL 30 MG IV (15:09)
[2023-05-25] MEDS: COMPAZINE 10 MG IV (15:09)
--- NOTE | 2023-05-25 15:52 | ED.GENMED ---
History of Present Illness
<Soraida Reaves PA-C - Last Filed: 05/25/23 17:56>
General
Chief Complaint: Headache
Source: patient
Exam Limitations: none
Time Seen by Provider: 05/25/23 13:48
Nursing documentation reviewed up to this point in time: agreed with
Travel History
Have you had any contact with someone who has COVID-19?: No
Do you have any symptoms of coronavirus? Fever > 100 degrees, chills, cough, shortness of breath, sore throat, loss of taste or smell, muscle aches, or headache?: No
History of Present Illness
History of Present Illness:
PT IS A 57 Y/O F with chronic migraines, frequent and severe, managed by [facility]
parkinsons
has had this headache located around right eye and top of head gradually for > 10 days
she had no trauma
this is typical of her previous bad migraines
pain was not relieved with meds at home, which she has taken over the course: toradol, immitrex nasal spray, and today ubrelvy x 1 dose
pt has also had botox injection 10 days ago at her headache clinic which sometimes helps but this time did not
when pain gets this bad she comes ni for iv compazine, toradol, benadryl and magnesium and that usually helps
she has not had any fever, head trauma, sudden severe worst headache of life, neck stiffness, vision loss, numbness/tingling/weakness.
she has had nausea and photophobia which are typical
Past History
<Soraida Reaves PA-C - Last Filed: 05/25/23 17:56>
Past History
ED Past Medical History: Asthma, Hypercholesterolemia, NIDDM and Other (Migraine headaches, Kidney stones, Diverticulosis, pseudotumor cerebri, fibromyalgia, C. difficile, irritable bowel syndrome, sleep apnea Parkinson's.)
ED Past Surgical History: Appendectomy, Cholecystectomy, , Urological (kidney stone remval) and Other (sinus surgery)
Social History
Tobacco: Non-smoker
Alcohol: None
Drug: None
Personal:
Living: with family
Employment: Employed
Family History
Family History: Hypertension and Other (Hypercholesterolemia)
Phy Exam
<Soraida Reaves PA-C - Last Filed: 05/25/23 17:56>
Physical Exam
Physical Exam:
GENERAL: Alert , in no apparent distress
HEAD: NCAT
arthur shaped face
EYE: pupils equal and reactive, no nystagmus, minimal photophobia
NECK: Supple,full rom, nontender
ENT: o/p clr, mmm.
CARDIAC: Regular rate and rhythm . no edema
LUNGS: Clear breath sounds bilaterally, no acute respiratory distress, no wheezes/rales/rhonchi
ABDOMEN: Soft, without focal tenderness, no r/g, no cvat
neuro: a&o x 4; cn intact; 5/5 stregnth, sensation intact, normal finger to nose, subtle tremor with intention
SKIN: Warm and dry, skin intact.
MUSCULOSKELETAL: No edema, well perfused.
PSYCH: Normal and appropriate interaction.
Course
<LAURYN Warner Last Filed: 05/25/23 17:56>
Orders/Labs/Results
Orders:
Orders
05/25/23 14:29
0.9% Sodium Chloride 1000 ml [Nss] 1,000 ml IV BOLUS
05/25/23 14:30
Diphenhydramine [Benadryl] 25 mg IV NOW STA
Ketorolac [Toradol] 30 mg IV NOW STA
Magnesium Sulfate 1 G/D5w [Magnesium Sulfate] 1 gm in 100 ml IV NOW
Prochlorperazine [Compazine] 10 mg IV NOW STA
05/25/23 16:57
Butalb/Acetaminophen/Caffeine [Fioricet] 1 tab PO NOW STA
05/25/23 17:53
Butalb/Acetaminophen/Caffeine [Fioricet] 1 tab PO NOW STA
Vital Signs
Initial and Last Documented VS:
Initial Vital Signs
Temp Pulse Resp BP Pulse Ox
98.6 F 74 16 124/61 98
05/25/23 13:43 05/25/23 13:43 05/25/23 13:43 05/25/23 13:43 05/25/23 13:43
Last Documented Vital Signs
Temp Pulse Resp BP Pulse Ox
98.6 F 74 16 124/61 98
05/25/23 13:43 05/25/23 13:43 05/25/23 13:43 05/25/23 13:43 05/25/23 13:43
<Sandra Baig MD - Last Filed: 05/25/23 16:12>
Orders/Labs/Results
Orders:
Orders
05/25/23 14:29
0.9% Sodium Chloride 1000 ml [Nss] 1,000 ml IV BOLUS
05/25/23 14:30
Diphenhydramine [Benadryl] 25 mg IV NOW STA
Ketorolac [Toradol] 30 mg IV NOW STA
Magnesium Sulfate 1 G/D5w [Magnesium Sulfate] 1 gm in 100 ml IV NOW
Prochlorperazine [Compazine] 10 mg IV NOW STA
05/25/23 16:57
Butalb/Acetaminophen/Caffeine [Fioricet] 1 tab PO NOW STA
05/25/23 17:53
Butalb/Acetaminophen/Caffeine [Fioricet] 1 tab PO NOW STA
Vital Signs
Initial and Last Documented VS:
Initial Vital Signs
Temp Pulse Resp BP Pulse Ox
98.6 F 74 16 124/61 98
05/25/23 13:43 05/25/23 13:43 05/25/23 13:43 05/25/23 13:43 05/25/23 13:43
Last Documented Vital Signs
Temp Pulse Resp BP Pulse Ox
98.6 F 74 16 124/61 98
05/25/23 13:43 05/25/23 13:43 05/25/23 13:43 05/25/23 13:43 05/25/23 13:43
<Soraida Reaves PA-C - Last Filed: 05/25/23 17:56>
MDM/Problems Addressed
Differential Diagnosis Includes:
migraine, IIH,
MDM/Problems Addressed:
57 y/o F with h/o migraines
chronic migraines with onset of symptoms gradually > 10 days ago
this is very similar to previous headaches
pt has many meds at home to attempt before ER visit
she even had botox at her headache clinic
but presents saying 12/11 at this point without relief form ubrelvy today
pt has no red flag sypmtoms, nothing out of the ordinary for her and says this is her typical pattern
when sh ecomes tot he ER, she says she gets compazine, benadryl, toradol and magnesium
neuro nitnact
has had previous brain imaaing normal.
05/25/2023 1704 PM
reassessed /10 pain from 12/11
she says this is somewhat typiical of her
when asked what other meds could help, pt says ' i think they just give me more of what they gave me already'
she had been using dilaudid and percocet at home for kidney stone and her neurologist believes opiates were the trigger so i would like to avoid I opiates.
she has tried fioricet previously with some relief; will try
05/25/2023 1755 PM
Patient had improvement to a 6 out of 10 and feels ready enough to go home. She will be given 1 more dose of Fioricet to be taken just when she leaves. Return precautions given.
<Soraida Reaves PA-C - Last Filed: 05/25/23 17:56>
*Critical Care Note
Total Time (30-74mins, 75-104mins- exclusive of procedures): Not Applicable
ED Attending Note
<Soraida Reaves PA-C - Last Filed: 05/25/23 17:56>
-
Portions of this chart may have been created with voice recognition software.� Occasional wrong word or��sound alike� substitutions may have occurred due to the inherent limitations of voice recognition software.
<Sandra Baig MD - Last Filed: 05/25/23 16:12>
ED Attending Note
Patient seen and examined by attending physician: Yes
I performed the substantive portion of visit, reviewed & personally made and approve the management plan that is documented in note by myself or KAY.: Yes
ED Attending Note:
patient appears nontoxic. no meningsmus and nonfocal neuro exam
Discharge Plan
Departure
Patient Disposition: Home (Routine Discharge)
Date of Disposition: 05/25/23
Time of Disposition: 17:54
Patient with high blood pressure during this ER visit?: No
Condition: Fair
Covid-19: Not Applicable
Discharge Problem:
Migraine
Instructions: Migraines (DC)
Prescriptions:
No Action
hydromorphone 4 MG tablet
2 mg PO Q4HPRN PRN (Reason: migraines)
tizanidine 4 MG tablet
4 mg PO HS
trazodone 100 MG tablet
100 mg PO HS
Rx Instructions:
Patient takes 1-3 tabs at bedtime.
propranolol 20 MG tablet
20 mg PO BID
dicyclomine 10 MG capsule
10 mg PO DAILYPRN PRN (Reason: abd pains)
Dupixent Syringe 300 MG/2 ML syringe
200 mg SQ Q2W
Aimovig Autoinjector 70 MG/ML auto-injector
70 mg SQ MONTHLY
ketorolac 10 MG tablet
10 mg PO Q6HPRN PRN (Reason: headache) Qty: 20 0RF
rosuvastatin 20 MG tablet
20 mg PO QPM
Myrbetriq 25 MG tablet extended release 24 hr
25 mg PO HS
prochlorperazine maleate 5 MG tablet
5 mg PO Q6HPRN PRN (Reason: nausea)
clonazepam 0.5 MG tablet
1 mg PO HS
olanzapine 5 MG tablet
5 mg PO DAILYPRN PRN (Reason: migraines)
ergocalciferol (vitamin D2) 50,000 UNITS capsule
50,000 units PO FR
lisinopril 2.5 MG tablet
2.5 mg PO HS
carbidopa-levodopa 50-200 mg Tablet Extended Release
1 tab PO HS
zonisamide 100 mg Capsule
100 mg PO HS
methenamine hippurate [Hiprex] 1 gram Tablet
1 g PO Q12H
mexiletine 250 mg Capsule
500 mg PO BID
sumatriptan 20 mg/actuation [place],Non-Aerosol
20 mg INTRANASAL Q2H PRN (Reason: migraines)
carbidopa-levodopa 25-100 mg Tablet
1.5 tab PO TID
cyclosporine [Restasis] 0.05 % Dropperette
1 drp BOTH EYES Q12H
Humalog KwikPen Insulin 200 unit/mL (3 mL) Insulin Pen
14 - 22 sliding scale dose SC AC
Patient Comments:
took 20 units 05/07/23 dinnertime
Ubrelvy 100 mg Tablet
100 mg PO DAILYPRN PRN (Reason: migraines)
tamsulosin [Flomax] 0.4 mg capsule
0.4 mg PO QPM
ibuprofen 800 mg Tablet
800 mg PO Q6H PRN (Reason: pain)
meclizine 25 mg Tablet
25 mg PO TID PRN (Reason: Dizziness)
metformin 500 mg Tablet Extended Release 24 Hr
500 mg PO TID
PreserVision AREDS-2 250-90-40-1 mg Capsule
1 tab PO BID
insulin degludec [Tresiba FlexTouch U-100] 100 unit/mL (3 mL) Insulin Pen
90 unit SC HS
Patient Comments:
44 units 2130 on 05/06/23
ciprofloxacin HCl 500 mg tablet
500 mg PO Q12H 10 Days Qty: 20 0RF
Probiotic 3 billion cell capsule
3,000 mmu cells PO DAILY Qty: 30 0RF
vancomycin 250 mg Capsule
250 mg PO QID
Patient Comments:
USED PREVENTATIVELY WHENEVER GIVEN ANTIBIOTICS.
oxycodone-acetaminophen [Percocet] 5-325 mg Tablet
1 tab PO Q4H PRN (Reason: PAIN)
phenazopyridine [Pyridium] 100 mg Tablet
200 mg PO TID
ondansetron 4 mg tablet,disintegrating
8 mg PO Q8H PRN (Reason: nausea and vomiting)
Referrals:
Kimberlyn Vera MD [Family Provider] - Follow up in 2-3 days
Activity Restrictions/Additional Instructions:
YOU WERE GIVEN MEDICATIONS FOR YOUR MIGRAINE
PLEASE FOLLOW UP WITH YOUR NEUROLOGIST
RETURN FOR WORSENING HEADACHE, FEVER, NECK PAIN, VOMITNIG, NEUROLOGIC CHANGES OR ANY CONCERNS.
Interventions
Interventions:
*Risk Screen - Suicide Last Done: 05/25/23 13:43
*General Assessment Last Done: 05/25/23 13:43
*Neglect/Abuse Screening Last Done: 05/25/23 13:43
ED- Fall Risk Assessment Last Done: 05/25/23 14:54
*ED COVID-19 Vaccine History Last Done: 05/25/23 14:46
ED- Neurological Assessment Last Done: 05/25/23 14:54
[2023-05-25] MEDS: FIORICET 1 TAB PO ×2 (17:05→18:14)
[2023-05-25 17:30] VITALS: BP 124/61
== END 2023-05-25 18:52 | disposition home or self-care (01) ==
LOC: EMR 13:41
PROVIDERS: EMERGENCY PHYSICIAN Emergency Medicine; FAMILY PHYSICIAN Internal Medicine
DX: G43.909 Migraine, unspecified, not intractable, without status migrainosus (principal); G20.A1 Parkinson's disease without dyskinesia, without mention of fluctuations; E11.9 Type 2 diabetes mellitus without complications; E78.00 Pure hypercholesterolemia, unspecified; G47.30 Sleep apnea, unspecified; J45.909 Unspecified asthma, uncomplicated; K58.9 Irritable bowel syndrome, unspecified; M79.7 Fibromyalgia; Z82.49 Family history of ischemic heart disease and other diseases of the circulatory system; Z83.49 Family history of other endocrine, nutritional and metabolic diseases; Z87.442 Personal history of urinary calculi; Z90.49 Acquired absence of other specified parts of digestive tract
CPT/HCPCS: 99282; 96374; 96375; 96361

== ENCOUNTER 2023-08-15 16:28 | Emergency (ER) | payer BC, SELFPAY ==
[2023-08-15 16:29] VITALS: BP 105/72
[2023-08-15] MEDS: NSS 1000 IV (17:22)
[2023-08-15] MEDS: REGLAN 10 MG IV (17:23)
[2023-08-15] MEDS: BENADRYL 25 MG IV (17:24)
[2023-08-15] MEDS: TORADOL 30 MG IV (17:26)
[2023-08-15] MEDS: MAGNESIUM SULFATE 50 IV (17:31)
--- NOTE | 2023-08-15 18:22 | ED.GENMED ---
History of Present Illness
General
Chief Complaint: Headache
Source: patient
Time Seen by Provider: 08/15/23 16:45
Travel History
Have you had any contact with someone who has COVID-19?: No
Do you have any symptoms of coronavirus? Fever > 100 degrees, chills, cough, shortness of breath, sore throat, loss of taste or smell, muscle aches, or headache?: No
History of Present Illness
History of Present Illness:
57-year-old female with multiple chronic medical conditions presenting to the emergency department for evaluation of an exacerbation of a typical migraine. Patient states that she attempted her usual medications including Ubrelvy, Toradol and
antinausea medications but without any relief. She got Botox injections 1 week ago which she states normally helped her migraines but today she was just not able to feel better. Patient notes that when she has to come to the hospital she normally
does well with Reglan, Benadryl, Toradol, magnesium infusion and fluids she states the headache today is very typical for her usual migraine exacerbation. She denies any fevers, chills, rigors, visual disturbances, focal weakness or numbness or any
other concerns
Past History
Past History
ED Past Medical History: Asthma, Hypercholesterolemia, NIDDM and Other (Migraine headaches, Kidney stones, Diverticulosis, pseudotumor cerebri, fibromyalgia, C. difficile, irritable bowel syndrome, sleep apnea Parkinson's.)
ED Past Surgical History: Appendectomy, Cholecystectomy, , Urological (kidney stone remval) and Other (sinus surgery)
Social History
Tobacco: Non-smoker
Alcohol: None
Drug: None
Personal:
Living: with family
Employment: Employed
Family History
Family History: Hypertension and Other (Hypercholesterolemia)
Review of Systems
Review of Systems
All Other Systems: ROS reviewed and negative except as documented in HPI and ROS
Phy Exam
Physical Exam
Physical Exam:
GENERAL: Alert , appears uncomfortable
Head: Normocephalic atraumatic
EYE: conjunctiva clear, pupils 4 mm bilateral, PERRL
NECK: Supple, no meningismus
ENT: o/p clr, mmm.
CARDIAC: Regular rate and rhythm
LUNGS: Clear breath sounds bilaterally, no acute respiratory distress, no wheezes/rales/rhonchi
NEUROLOGICAL: Alert and oriented
SKIN: Warm and dry, skin intact.
MUSCULOSKELETAL: well perfused.
PSYCH: Normal and appropriate interaction.
Scores
Heart Failure Risk
Heart Failure Risk Score: Not Applicable
Heart Score for Chest Pain Patients
STEMI patient?: Not applicable
Withdrawal Assessment of Alcohol
Withdrawal Assessment Completed?: Not applicable
Course
Orders/Labs/Results
Orders:
Orders
08/15/23 16:52
0.9% Sodium Chloride 1000 ml [Nss] 1,000 ml IV BOLUS
Diphenhydramine [Benadryl] 25 mg IV NOW STA
Ketorolac [Toradol] 30 mg IV NOW STA
Magnesium Sulfate 2 Gram/50 ml [Magnesium Sulfate] 2 gram in 50 ml IV NOW
Metoclopramide [Reglan] 10 mg IV NOW STA
Vital Signs
Initial and Last Documented VS:
Initial Vital Signs
Temp Pulse Resp BP Pulse Ox
99.3 F 85 22 105/72 100
08/15/23 16:29 08/15/23 16:29 08/15/23 16:29 08/15/23 16:29 08/15/23 16:29
Last Documented Vital Signs
Temp Pulse Resp BP Pulse Ox
99.3 F 64 22 105/72 96
08/15/23 16:29 08/15/23 20:28 08/15/23 16:29 08/15/23 16:29 08/15/23 20:15
MDM/Problems Addressed
Differential Diagnosis Includes:
Migraine headache exacerbation, I do not have concern for intracranial bleeding, no concern for infectious etiology
MDM/Problems Addressed:
57-year-old female presenting emergency department for exacerbation of typical migraine headache. No relief with home medications. Patient stating this is her typical migraine exacerbation. Will treat with medications that have helped her in the
past. Reassessment following. Patient is otherwise stable
Chronic conditions affecting care: Neurological disorder
Acute Exacerbation and/or Progression of Chronic Illness: Neurological disorder
*Pulse Oximetry
Patient hypoxic: no
*Critical Care Note
Total Time (30-74mins, 75-104mins- exclusive of procedures): Not Applicable
Data Reviewed
Review of Other/Old Records Reveals: Labs and Records
Source: patient and records
Comment
Comment:
7:49 PM: Patient resting comfortably and sleeping. Will reassess upon awakening.
Patient Management
Escalation/DeEscalation of care consider admission/obs:
Patient reports full resolution of symptoms and would like to be discharged home. Will continue outpatient follow-up as scheduled. Aware of return precautions. Stable for discharge.
ED Attending Note
-
Portions of this chart may have been created with voice recognition software.� Occasional wrong word or��sound alike� substitutions may have occurred due to the inherent limitations of voice recognition software.
Discharge Plan
Departure
Patient Disposition: Home (Routine Discharge)
Date of Disposition: 08/15/23
Time of Disposition: 20:20
Patient with high blood pressure during this ER visit?: No
Discharge Problem:
Headache, migraine
Instructions: Migraines (DC)
Prescriptions:
No Action
hydromorphone 4 MG tablet
2 mg PO Q4HPRN PRN (Reason: migraines)
tizanidine 4 MG tablet
4 mg PO HS
trazodone 100 MG tablet
100 mg PO HS
Rx Instructions:
Patient takes 1-3 tabs at bedtime.
propranolol 20 MG tablet
20 mg PO BID
dicyclomine 10 MG capsule
10 mg PO DAILYPRN PRN (Reason: abd pains)
Dupixent Syringe 300 MG/2 ML syringe
200 mg SQ Q2W
Aimovig Autoinjector 70 MG/ML auto-injector
70 mg SQ MONTHLY
ketorolac 10 MG tablet
10 mg PO Q6HPRN PRN (Reason: headache) Qty: 20 0RF
rosuvastatin 20 MG tablet
20 mg PO QPM
Myrbetriq 25 MG tablet extended release 24 hr
25 mg PO HS
prochlorperazine maleate 5 MG tablet
5 mg PO Q6HPRN PRN (Reason: nausea)
clonazepam 0.5 MG tablet
1 mg PO HS
olanzapine 5 MG tablet
5 mg PO DAILYPRN PRN (Reason: migraines)
ergocalciferol (vitamin D2) 50,000 UNITS capsule
50,000 units PO FR
lisinopril 2.5 MG tablet
2.5 mg PO HS
carbidopa-levodopa 50-200 mg Tablet Extended Release
1 tab PO HS
zonisamide 100 mg Capsule
100 mg PO HS
methenamine hippurate [Hiprex] 1 gram Tablet
1 g PO Q12H
mexiletine 250 mg Capsule
500 mg PO BID
sumatriptan 20 mg/actuation [place],Non-Aerosol
20 mg INTRANASAL Q2H PRN (Reason: migraines)
carbidopa-levodopa 25-100 mg Tablet
1.5 tab PO TID
cyclosporine [Restasis] 0.05 % Dropperette
1 drp BOTH EYES Q12H
Humalog KwikPen Insulin 200 unit/mL (3 mL) Insulin Pen
14 - 22 sliding scale dose SC AC
Patient Comments:
took 20 units 05/07/23 dinnertime
Ubrelvy 100 mg Tablet
100 mg PO DAILYPRN PRN (Reason: migraines)
tamsulosin [Flomax] 0.4 mg capsule
0.4 mg PO QPM
ibuprofen 800 mg Tablet
800 mg PO Q6H PRN (Reason: pain)
meclizine 25 mg Tablet
25 mg PO TID PRN (Reason: Dizziness)
metformin 500 mg Tablet Extended Release 24 Hr
500 mg PO TID
PreserVision AREDS-2 250-90-40-1 mg Capsule
1 tab PO BID
insulin degludec [Tresiba FlexTouch U-100] 100 unit/mL (3 mL) Insulin Pen
90 unit SC HS
Patient Comments:
44 units 2130 on 05/06/23
ciprofloxacin HCl 500 mg tablet
500 mg PO Q12H 10 Days Qty: 20 0RF
Probiotic 3 billion cell capsule
3,000 mmu cells PO DAILY Qty: 30 0RF
vancomycin 250 mg Capsule
250 mg PO QID
Patient Comments:
USED PREVENTATIVELY WHENEVER GIVEN ANTIBIOTICS.
oxycodone-acetaminophen [Percocet] 5-325 mg Tablet
1 tab PO Q4H PRN (Reason: PAIN)
phenazopyridine [Pyridium] 100 mg Tablet
200 mg PO TID
ondansetron 4 mg tablet,disintegrating
8 mg PO Q8H PRN (Reason: nausea and vomiting)
Referrals:
Kimberlyn Vera MD [Family Provider] -
Interventions
Interventions:
*Risk Screen - Suicide Last Done: 08/15/23 16:29
*General Assessment Last Done: 08/15/23 16:29
*Neglect/Abuse Screening Last Done: 08/15/23 16:29
*Nursing Disposition Last Done: 08/15/23 20:28
ED- Neurological Assessment Last Done: 08/15/23 17:20
Discharge Date and Time
Discharge Date/Time: 08/15/23 20:29
Print Language: MARSHALLESE
== END 2023-08-15 20:29 | disposition home or self-care (01) ==
LOC: EMR 16:28
PROVIDERS: EMERGENCY PHYSICIAN Emergency Medicine; FAMILY PHYSICIAN Internal Medicine
DX: G43.909 Migraine, unspecified, not intractable, without status migrainosus (principal); E11.9 Type 2 diabetes mellitus without complications; E78.00 Pure hypercholesterolemia, unspecified; G20.A1 Parkinson's disease without dyskinesia, without mention of fluctuations; G47.30 Sleep apnea, unspecified; J45.909 Unspecified asthma, uncomplicated; K58.9 Irritable bowel syndrome, unspecified; M79.7 Fibromyalgia; K57.90 Diverticulosis of intestine, part unspecified, without perforation or abscess without bleeding; G93.2 Benign intracranial hypertension; Z90.49 Acquired absence of other specified parts of digestive tract; Z87.442 Personal history of urinary calculi; Z88.1 Allergy status to other antibiotic agents; Z88.3 Allergy status to other anti-infective agents; Z88.0 Allergy status to penicillin; Z88.2 Allergy status to sulfonamides; Z88.8 Allergy status to other drugs, medicaments and biological substances
CPT/HCPCS: 99284; 96365; 96375 ×3; 96366

== ENCOUNTER 2023-09-21 17:24 | Emergency (ER) | payer BC, SELFPAY ==
[2023-09-21 17:26] VITALS: BP 133/78
--- NOTE | 2023-09-21 18:27 | ED.GENMED ---
History of Present Illness
General
Chief Complaint: Headache
Source: patient
Exam Limitations: none
Time Seen by Provider: 09/21/23 18:05
Nursing documentation reviewed up to this point in time: agreed with
History of Present Illness
History of Present Illness:
Patient with history of migraine headache, presents to ED secondary to recurrent severe diffuse headache, not being relieved with her home medications. Patient states that she lives with headache daily, but is usually manageable with her
medications. Denies fever. Denies dizziness. Denies blurred vision. Denies loss of sensation or weakness. Denies difficulty with speech. Denies difficulty with ambulation. Denies recent illness. Denies recent change in medications or diet.
Patient reports photophobia with intermittent episodes of vomiting over the past 3 days. Patient has been evaluated in the hospital setting when home medications do not work.
Past History
Past History
ED Past Medical History: Asthma, Hypercholesterolemia, NIDDM and Other (Migraine headaches, Kidney stones, Diverticulosis, pseudotumor cerebri, fibromyalgia, C. difficile, irritable bowel syndrome, sleep apnea Parkinson's.)
ED Past Surgical History: Appendectomy, Cholecystectomy, , Urological (kidney stone remval) and Other (sinus surgery)
Social History
Tobacco: Non-smoker
Alcohol: None
Drug: None
Personal:
Living: with family
Employment: Employed
Family History
Family History: Hypertension and Other (Hypercholesterolemia)
Review of Systems
Review of Systems
Allergies reviewed?: Yes
All Other Systems: ROS reviewed and negative except as documented in HPI and ROS
Constitutional: Reports no symptoms
EENT: Reports no symptoms
ABD/GI: Reports nausea and vomiting; Denies abdominal pain or diarrhea
Musculoskeletal: Reports no symptoms
Skin: Reports no symptoms
Neurological: Reports headache; Denies dizzy, weakness or numbness
Phy Exam
Physical Exam
Physical Exam:
Physical Exam
General: mild painful distress, not acutely ill. afebrile
Head: nc/at. eomi
Neck: supple. no meningeal signs.
Heart: s1/s2 regular rate and rhythm, no murmur. equal radial pulses.
Lungs: no acute respiratory distress. clear bilaterally
Abdomen: normal bowel sounds. not tender.
Neuro: alert and oriented. no focal neurological deficits
Skin: no rash
Psychiatric: well kept. interactive and cooperative
Extremities: no edema. no calf tenderness.
Course
Orders/Labs/Results
Orders:
Orders
09/21/23 18:09
Ketorolac [Toradol] 30 mg IV NOW STA
Magnesium Sulfate 1 grams 0.9% Sodium Chloride 100 ml [Nss] 100 ml IV NOW
Ondansetron Injectable [Zofran] 4 mg IV NOW STA
09/21/23 18:10
0.9% Sodium Chloride 500 ml [Nss] 500 ml IV BOLUS
09/21/23 18:44
Magnesium Sulfate 1 G/D5w [Magnesium Sulfate] 1 gm in 100 ml .ROUTE .STK-MED
09/21/23 18:46
Magnesium Sulfate 1 G/D5w [Magnesium Sulfate] 1 gm IV ONCE ONE
09/21/23 19:08
Diphenhydramine [Benadryl] 25 mg IV NOW STA
09/21/23 20:02
HYDROmorphone [Dilaudid] 0.5 mg IV NOW STA
Vital Signs
Initial and Last Documented VS:
Initial Vital Signs
Temp Pulse Resp BP Pulse Ox
99.1 F 85 18 133/78 96
09/21/23 17:26 09/21/23 17:26 09/21/23 17:26 09/21/23 17:26 09/21/23 17:26
Last Documented Vital Signs
Temp Pulse Resp BP Pulse Ox
99.1 F 84 16 119/63 95
09/21/23 17:26 09/21/23 20:22 09/21/23 20:22 09/21/23 20:18 09/21/23 20:18
MDM/Problems Addressed
MDM/Problems Addressed:
Patient reports improvement in symptoms after treatment. Otherwise, patient remains afebrile, hemodynamically stable, and neurologically intact during observation. At this time, patient feels comfortable going home and will follow-up with her
neurologist at [facility]. Patient will be discharged home in stable condition, to the care of her spouse.
*Critical Care Note
Total Time (30-74mins, 75-104mins- exclusive of procedures): Not Applicable
ED Attending Note
-
Portions of this chart may have been created with voice recognition software.� Occasional wrong word or��sound alike� substitutions may have occurred due to the inherent limitations of voice recognition software.
Discharge Plan
Departure
Patient Disposition: Home (Routine Discharge)
Date of Disposition: 09/21/23
Time of Disposition: 20:47
Patient with high blood pressure during this ER visit?: Yes
Condition: Good
Discharge Problem:
Headache, migraine
Instructions: Migraines (DC)
Prescriptions:
No Action
hydromorphone 4 MG tablet
2 mg PO Q4HPRN PRN (Reason: migraines)
tizanidine 4 MG tablet
4 mg PO HS
trazodone 100 MG tablet
100 mg PO HS
Rx Instructions:
Patient takes 1-3 tabs at bedtime.
propranolol 20 MG tablet
20 mg PO BID
dicyclomine 10 MG capsule
10 mg PO DAILYPRN PRN (Reason: abd pains)
Dupixent Syringe 300 MG/2 ML syringe
200 mg SQ Q2W
Aimovig Autoinjector 70 MG/ML auto-injector
70 mg SQ MONTHLY
ketorolac 10 MG tablet
10 mg PO Q6HPRN PRN (Reason: headache) Qty: 20 0RF
rosuvastatin 20 MG tablet
20 mg PO QPM
Myrbetriq 25 MG tablet extended release 24 hr
25 mg PO HS
prochlorperazine maleate 5 MG tablet
5 mg PO Q6HPRN PRN (Reason: nausea)
clonazepam 0.5 MG tablet
1 mg PO HS
olanzapine 5 MG tablet
5 mg PO DAILYPRN PRN (Reason: migraines)
ergocalciferol (vitamin D2) 50,000 UNITS capsule
50,000 units PO FR
lisinopril 2.5 MG tablet
2.5 mg PO HS
carbidopa-levodopa 50-200 mg Tablet Extended Release
1 tab PO HS
zonisamide 100 mg Capsule
100 mg PO HS
methenamine hippurate [Hiprex] 1 gram Tablet
1 g PO Q12H
mexiletine 250 mg Capsule
500 mg PO BID
sumatriptan 20 mg/actuation [place],Non-Aerosol
20 mg INTRANASAL Q2H PRN (Reason: migraines)
carbidopa-levodopa 25-100 mg Tablet
1.5 tab PO TID
cyclosporine [Restasis] 0.05 % Dropperette
1 drp BOTH EYES Q12H
Humalog KwikPen Insulin 200 unit/mL (3 mL) Insulin Pen
14 - 22 sliding scale dose SC AC
Patient Comments:
took 20 units 05/07/23 dinnertime
Ubrelvy 100 mg Tablet
100 mg PO DAILYPRN PRN (Reason: migraines)
tamsulosin [Flomax] 0.4 mg capsule
0.4 mg PO QPM
ibuprofen 800 mg Tablet
800 mg PO Q6H PRN (Reason: pain)
meclizine 25 mg Tablet
25 mg PO TID PRN (Reason: Dizziness)
metformin 500 mg Tablet Extended Release 24 Hr
500 mg PO TID
PreserVision AREDS-2 250-90-40-1 mg Capsule
1 tab PO BID
insulin degludec [Tresiba FlexTouch U-100] 100 unit/mL (3 mL) Insulin Pen
90 unit SC HS
Patient Comments:
44 units 2130 on 05/06/23
ciprofloxacin HCl 500 mg tablet
500 mg PO Q12H 10 Days Qty: 20 0RF
Probiotic 3 billion cell capsule
3,000 mmu cells PO DAILY Qty: 30 0RF
vancomycin 250 mg Capsule
250 mg PO QID
Patient Comments:
USED PREVENTATIVELY WHENEVER GIVEN ANTIBIOTICS.
oxycodone-acetaminophen [Percocet] 5-325 mg Tablet
1 tab PO Q4H PRN (Reason: PAIN)
phenazopyridine [Pyridium] 100 mg Tablet
200 mg PO TID
ondansetron 4 mg tablet,disintegrating
8 mg PO Q8H PRN (Reason: nausea and vomiting)
Referrals:
Kimberlyn Correa MD [Family Provider] -
Activity Restrictions/Additional Instructions:
As discussed, please follow-up with your primary care physician and/or neurologist with any further concerns.
Interventions
Interventions:
*Risk Screen - Suicide Last Done: 09/21/23 17:26
*General Assessment Last Done: 09/21/23 17:26
*Neglect/Abuse Screening Last Done: 09/21/23 17:26
*ED COVID-19 Vaccine History Last Done: 09/21/23 17:26
*Nursing Disposition Last Done: 09/21/23 20:55
ED- Neurological Assessment Last Done: 09/21/23 18:45
Discharge Date and Time
Discharge Date/Time: 09/21/23 20:55
Print Language: GABONESE
[2023-09-21] MEDS: ZOFRAN 4 MG IV (18:46)
[2023-09-21] MEDS: TORADOL 30 MG IV (18:46)
[2023-09-21] MEDS: NSS 500 IV (18:47)
[2023-09-21] MEDS: MAGNESIUM SULFATE 1 GM IV (18:55)
[2023-09-21] MEDS: BENADRYL 25 MG IV (19:32)
[2023-09-21] MEDS: DILAUDID 0.5 MG IV (20:15)
[2023-09-21 20:18] VITALS: BP 119/63
== END 2023-09-21 20:55 | disposition home or self-care (01) ==
LOC: EMR 17:24
PROVIDERS: EMERGENCY PHYSICIAN Emergency Medicine; FAMILY PHYSICIAN Internal Medicine
DX: G43.909 Migraine, unspecified, not intractable, without status migrainosus (principal); E11.9 Type 2 diabetes mellitus without complications; G20.A1 Parkinson's disease without dyskinesia, without mention of fluctuations; R03.0 Elevated blood-pressure reading, without diagnosis of hypertension
CPT/HCPCS: 99284; 96374; 96375 ×4

== ENCOUNTER 2023-11-11 12:47 | Emergency (ER) | payer BC, SELFPAY ==
[2023-11-11 12:48] VITALS: BP 145/85
--- NOTE | 2023-11-11 13:12 | EDRN ---
Bryson Figueroa PA in to see pt.
--- NOTE | 2023-11-11 13:19 | ED.GENMED ---
History of Present Illness
<Delgado Figueroa PA-C - Last Filed: 11/12/23 08:27>
General
Chief Complaint: Headache
Time Seen by Provider: 11/11/23 13:07
History of Present Illness
History of Present Illness:
58-year-old female with long history of chronic migraines presents the emergency department for evaluation of worsening headaches over the past week. States the headaches are typical for her migraines. She just completed a round of Botox
treatments without improvement. She will be admitted at the end of this month to be [facility] migraine center for 1 week along with lidocaine infusions. She states that typically she improves with the ED migraine cocktails. Denies any
recent head trauma. Denies any abnormal symptoms for this current headache
Past History
<Delgado Figueroa PA-C - Last Filed: 11/12/23 08:27>
Past History
ED Past Medical History: Asthma, Hypercholesterolemia, NIDDM and Other (Migraine headaches, Kidney stones, Diverticulosis, pseudotumor cerebri, fibromyalgia, C. difficile, irritable bowel syndrome, sleep apnea Parkinson's.)
ED Past Surgical History: Appendectomy, Cholecystectomy, , Urological (kidney stone remval) and Other (sinus surgery)
Social History
Tobacco: Non-smoker
Alcohol: None
Drug: None
Personal:
Living: with family
Employment: Employed
Family History
Family History: Hypertension and Other (Hypercholesterolemia)
Review of Systems
<Delgado Figueroa PA-C - Last Filed: 11/12/23 08:27>
Review of Systems
Allergies reviewed?: Yes
All Other Systems: ROS reviewed and negative except as documented in HPI and ROS
Phy Exam
<Delgado Figueroa PA-C - Last Filed: 11/12/23 08:27>
Physical Exam
Physical Exam:
GEN: Well appearing, NAD, WDWN
HEENT: Oral mucosa moist, no scleral icterus
Cardiac: Regular rate
Lung: No respiratory distress, no tachypnea
MSK: No gross deformity or injuries
Skin: Good color, no pallor or jaundice, no rashes
Neuro: AO x3, moves all extremities freely
Psych: Calm, cooperative
Course
<Delgado Figueroa PA-C - Last Filed: 11/12/23 08:27>
Orders/Labs/Results
Orders:
Orders
11/11/23 13:12
Ketorolac [Toradol] 15 mg IV NOW STA
Magnesium Sulfate 2 Gram/50 ml [Magnesium Sulfate] 2 gram in 50 ml IV NOW
Metoclopramide [Reglan] 10 mg IV NOW STA
11/11/23 15:36
Valproate Sodium [Depacon] 500 mg 0.9% Sodium Chloride 50 ml [Nss] 50 ml IV NOW
Vital Signs
Initial and Last Documented VS:
Initial Vital Signs
Temp Pulse Resp BP Pulse Ox
98.2 F 83 16 145/85 98
11/11/23 12:48 11/11/23 12:48 11/11/23 12:48 11/11/23 12:48 11/11/23 12:48
Last Documented Vital Signs
Temp Pulse Resp BP Pulse Ox
98.3 F 85 20 139/65 96
11/11/23 16:47 11/11/23 16:47 11/11/23 14:01 11/11/23 16:47 11/11/23 16:47
<Marlon Rees PA-C - Last Filed: 11/11/23 16:59>
Orders/Labs/Results
Orders:
Orders
11/11/23 13:12
Ketorolac [Toradol] 15 mg IV NOW STA
Magnesium Sulfate 2 Gram/50 ml [Magnesium Sulfate] 2 gram in 50 ml IV NOW
Metoclopramide [Reglan] 10 mg IV NOW STA
11/11/23 15:36
Valproate Sodium [Depacon] 500 mg 0.9% Sodium Chloride 50 ml [Nss] 50 ml IV NOW
Vital Signs
Initial and Last Documented VS:
Initial Vital Signs
Temp Pulse Resp BP Pulse Ox
98.2 F 83 16 145/85 98
11/11/23 12:48 11/11/23 12:48 11/11/23 12:48 11/11/23 12:48 11/11/23 12:48
Last Documented Vital Signs
Temp Pulse Resp BP Pulse Ox
98.3 F 85 20 139/65 96
11/11/23 16:47 11/11/23 16:47 11/11/23 14:01 11/11/23 16:47 11/11/23 16:47
<Marlon Rees PA-C - Last Filed: 11/11/23 16:59>
*Critical Care Note
Total Time (30-74mins, 75-104mins- exclusive of procedures): Not Applicable
<Marlon Rees PA-C - Last Filed: 11/11/23 16:59>
Patient Management
Escalation/DeEscalation of care consider admission/obs:
Patient signed out to me pending reevaluation following medications for migraine headache. She notes pain is down to a 5 out of 10. Patient ultimately would prefer to be discharged home. She is due for her Botox injections later this week and
will be admitted to a separate facility for lidocaine infusions for her chronic migraines. Patient aware of return precautions to the ER and otherwise stable for discharge home.
<Delgado Figueroa PA-C - Last Filed: 11/12/23 08:27>
Update Note
Update Note:
1438: Pt reporting no improvement with migraine cocktail. Will order IV valproate
ED Attending Note
<Delgado Figueroa PA-C - Last Filed: 11/12/23 08:27>
-
Portions of this chart may have been created with voice recognition software.� Occasional wrong word or��sound alike� substitutions may have occurred due to the inherent limitations of voice recognition software.
Discharge Plan
Departure
Patient Disposition: Home (Routine Discharge)
Date of Disposition: 11/11/23
Time of Disposition: 16:50
Patient with high blood pressure during this ER visit?: Yes
Discharge Problem:
Migraine
Instructions: Migraines (DC)
Prescriptions:
No Action
hydromorphone 4 MG tablet
2 mg PO Q4HPRN PRN (Reason: migraines)
tizanidine 4 MG tablet
4 mg PO HS
trazodone 100 MG tablet
100 mg PO HS
Rx Instructions:
Patient takes 1-3 tabs at bedtime.
propranolol 20 MG tablet
20 mg PO BID
dicyclomine 10 MG capsule
10 mg PO DAILYPRN PRN (Reason: abd pains)
Dupixent Syringe 300 MG/2 ML syringe
200 mg SQ Q2W
Aimovig Autoinjector 70 MG/ML auto-injector
70 mg SQ MONTHLY
ketorolac 10 MG tablet
10 mg PO Q6HPRN PRN (Reason: headache) Qty: 20 0RF
rosuvastatin 20 MG tablet
20 mg PO QPM
Myrbetriq 25 MG tablet extended release 24 hr
25 mg PO HS
prochlorperazine maleate 5 MG tablet
5 mg PO Q6HPRN PRN (Reason: nausea)
clonazepam 0.5 MG tablet
1 mg PO HS
olanzapine 5 MG tablet
5 mg PO DAILYPRN PRN (Reason: migraines)
ergocalciferol (vitamin D2) 50,000 UNITS capsule
50,000 units PO FR
lisinopril 2.5 MG tablet
2.5 mg PO HS
carbidopa-levodopa 50-200 mg Tablet Extended Release
1 tab PO HS
zonisamide 100 mg Capsule
100 mg PO HS
methenamine hippurate [Hiprex] 1 gram Tablet
1 g PO Q12H
mexiletine 250 mg Capsule
500 mg PO BID
sumatriptan 20 mg/actuation [place],Non-Aerosol
20 mg INTRANASAL Q2H PRN (Reason: migraines)
carbidopa-levodopa 25-100 mg Tablet
1.5 tab PO TID
cyclosporine [Restasis] 0.05 % Dropperette
1 drp BOTH EYES Q12H
Humalog KwikPen Insulin 200 unit/mL (3 mL) Insulin Pen
14 - 22 sliding scale dose SC AC
Patient Comments:
took 20 units 05/07/23 dinnertime
Ubrelvy 100 mg Tablet
100 mg PO DAILYPRN PRN (Reason: migraines)
tamsulosin [Flomax] 0.4 mg capsule
0.4 mg PO QPM
ibuprofen 800 mg Tablet
800 mg PO Q6H PRN (Reason: pain)
meclizine 25 mg Tablet
25 mg PO TID PRN (Reason: Dizziness)
metformin 500 mg Tablet Extended Release 24 Hr
500 mg PO TID
PreserVision AREDS-2 250-90-40-1 mg Capsule
1 tab PO BID
insulin degludec [Tresiba FlexTouch U-100] 100 unit/mL (3 mL) Insulin Pen
90 unit SC HS
Patient Comments:
44 units 2130 on 05/06/23
ciprofloxacin HCl 500 mg tablet
500 mg PO Q12H 10 Days Qty: 20 0RF
Probiotic 3 billion cell capsule
3,000 mmu cells PO DAILY Qty: 30 0RF
vancomycin 250 mg Capsule
250 mg PO QID
Patient Comments:
USED PREVENTATIVELY WHENEVER GIVEN ANTIBIOTICS.
oxycodone-acetaminophen [Percocet] 5-325 mg Tablet
1 tab PO Q4H PRN (Reason: PAIN)
phenazopyridine [Pyridium] 100 mg Tablet
200 mg PO TID
ondansetron 4 mg tablet,disintegrating
8 mg PO Q8H PRN (Reason: nausea and vomiting)
Referrals:
Kimberlyn Correa MD [Family Provider] -
Interventions
Interventions:
*Risk Screen - Suicide Last Done: 11/11/23 13:58
*General Assessment Last Done: 11/11/23 13:57
*Neglect/Abuse Screening Last Done: 11/11/23 13:58
ED- Fall Risk Assessment Last Done: 11/11/23 13:58
*ED COVID-19 Vaccine History Last Done: 11/11/23 13:57
*Nursing Disposition Last Done: 11/11/23 17:10
ED- Neurological Assessment Last Done: 11/11/23 13:58
Discharge Date and Time
Discharge Date/Time: 11/11/23 17:10
Print Language: FRENCH
--- NOTE | 2023-11-11 13:55 | EDRN ---
Attempted IV access x2. IV VAT RN paged and Justina will be down to attempt IV access. Pt's arms bilaterally wrapped in warm blankets at this time.
[2023-11-11 13:56] VITALS: BMI 33.9
[2023-11-11 14:01] VITALS: BP 128/78
--- NOTE | 2023-11-11 14:03 | EDRN ---
IV VAT RN Justina in room w/pt at this time.
[2023-11-11] MEDS: TORADOL 15 MG IV (14:11)
[2023-11-11] MEDS: REGLAN 10 MG IV (14:14)
[2023-11-11] MEDS: MAGNESIUM SULFATE 50 IV (15:08)
[2023-11-11] MEDS: DEPACON 55 MG IV (16:06)
[2023-11-11 16:47] VITALS: BP 139/65
== END 2023-11-11 17:10 | disposition home or self-care (01) ==
LOC: EMR 12:47
PROVIDERS: EMERGENCY PHYSICIAN Student in an Organized Health Care Education/Training Program; FAMILY PHYSICIAN Internal Medicine
DX: G43.909 Migraine, unspecified, not intractable, without status migrainosus (principal); R51.9 Headache, unspecified; J45.909 Unspecified asthma, uncomplicated; E78.00 Pure hypercholesterolemia, unspecified; E11.9 Type 2 diabetes mellitus without complications; M79.7 Fibromyalgia; K58.9 Irritable bowel syndrome, unspecified; G47.30 Sleep apnea, unspecified; G20.A1 Parkinson's disease without dyskinesia, without mention of fluctuations; Z82.49 Family history of ischemic heart disease and other diseases of the circulatory system; Z83.49 Family history of other endocrine, nutritional and metabolic diseases; Z87.442 Personal history of urinary calculi; Z90.49 Acquired absence of other specified parts of digestive tract
CPT/HCPCS: 99282; 96365; 96367; 96375

== ENCOUNTER 2023-11-18 17:28 | Emergency (ER) | payer BC, SELFPAY ==
[2023-11-18 17:30] VITALS: BP 135/75
--- NOTE | 2023-11-18 18:39 | ED.GENMED ---
History of Present Illness
<Tee Durham PA-C - Last Filed: 11/18/23 18:41>
General
Chief Complaint: Abdominal Pain
Source: patient
Exam Limitations: none
Time Seen by Provider: 11/18/23 18:29
History of Present Illness
History of Present Illness:
58-year-old female presents complaining of left lower abdominal pain with nausea vomiting diarrhea onset 2 nights ago worse today. This started soon after having fried scallops at a restaurant. Other members in her family ate the same food and are
not sick. She notes temperature at home of 100.5. The pain is constant but made worse with motion. She also has associated urinary symptoms. No chest pain or shortness of breath. No other complaints
Past History
<Tee Durham PA-C - Last Filed: 11/18/23 18:41>
Past History
ED Past Medical History: Asthma, Hypercholesterolemia, NIDDM and Other (Migraine headaches, Kidney stones, Diverticulosis, pseudotumor cerebri, fibromyalgia, C. difficile, irritable bowel syndrome, sleep apnea Parkinson's.)
ED Past Surgical History: Appendectomy, Cholecystectomy, , Urological (kidney stone remval) and Other (sinus surgery)
Social History
Tobacco: Non-smoker
Alcohol: None
Drug: None
Personal:
Living: with family
Employment: Employed
Family History
Family History: Hypertension and Other (Hypercholesterolemia)
Phy Exam
<Tee Durham PA-C - Last Filed: 11/18/23 18:41>
Physical Exam
Physical Exam:
General: Well-appearing female no acute respiratory distress
HEENT: Normocephalic atraumatic
Heart: Regular rate and rhythm no murmurs
Lungs: Clear no wheeze
Abdomen soft tender to the left lower quadrant no guarding or rebound normal bowel sounds
Extremities: No cyanosis
Course
<Tee Durham PA-C - Last Filed: 11/18/23 18:41>
Orders/Labs/Results
Orders:
Orders
11/18/23 18:35
STOOL [C difficile Antigen & Toxins] Urgent
HENRIK Source: Feces/Stool
Specimen Description:
Stool Culture Urgent
HENRIK Source: Feces/Stool
Specimen Description:
0.9% Sodium Chloride 1000 ml [Nss] 1,000 ml IV BOLUS
Ketorolac [Toradol] 15 mg IV NOW STA
Ondansetron Injectable [Zofran] 4 mg IV NOW STA
11/18/23 18:36
CT Abd/pelvis W Iv Cont Urgent
Comment:
Reason For Exam: llq pain
11/18/23 18:45
Complete Blood Count/With Diff Urgent
Comprehensive Metabolic Panel Urgent
Lipase Stat
Urinalysis Reflex To Culture Urgent
Date Specimen was Collected: 11/18/23
Time Specimen was Collected: 18:38
Urine Microscopic Reflex Cult Urgent
Urine Culture Urgent
HENRIK Source: U
Specimen Description:
Date Specimen was Collected: 11/18/23
Time Specimen was Collected: 18:38
11/19/23 00:28
Ciprofloxacin HCl [Cipro] 500 mg PO NOW STA
11/19/23 00:29
MetroNIDAZOLE [Flagyl] 500 mg PO NOW STA
11/19/23 01:02
Acetaminophen [Tylenol] 1,000 mg .ROUTE .STK-MED ONE
11/19/23 01:03
Acetaminophen [Tylenol] 1,000 mg PO NOW STA
Abnormal Lab Results
11/18/23
18:45
Hgb 11.8 L g/dL
(12.0-16.0)
Hct 35.4 L %
(37.0-47.0)
MCV 80.6 L fL
(81.0-99.0)
MCH 26.9 L pg
(27.0-31.0)
RDW 14.6 H %
(11.5-14.5)
Absolute Neuts (auto) 6.9 H 10^3/uL
(1.4-6.5)
Absolute Monos (auto) 0.9 H 10^3/uL
(0.1-0.6)
Carbon Dioxide 20 L mmol/L
(22-30)
Glucose 149 H mg/dl
(70-99)
Lipase 368 H U/L
(23-300)
Leukocyte Esterase Rfl 1+ A
(Negative)
Urine WBC (Reflex) 11-15 A /HPF
(0-5)
Urine Bacteria (Reflex) Few A
(Negative)
11/18/23 18:45
11/18/23 18:45
Vital Signs
Initial and Last Documented VS:
Initial Vital Signs
Temp Pulse Resp BP Pulse Ox
100.0 F 106 18 135/75 95
11/18/23 17:30 11/18/23 17:30 11/18/23 17:30 11/18/23 17:30 11/18/23 17:30
Last Documented Vital Signs
Temp Pulse Resp BP Pulse Ox
98.9 F 84 17 127/67 96
11/18/23 23:23 11/18/23 23:23 11/18/23 23:23 11/18/23 22:33 11/18/23 22:33
<SAHIL Adler - Last Filed: 11/19/23 01:18>
Orders/Labs/Results
Orders:
Orders
11/18/23 18:35
STOOL [C difficile Antigen & Toxins] Urgent
HENRIK Source: Feces/Stool
Specimen Description:
Stool Culture Urgent
HENRIK Source: Feces/Stool
Specimen Description:
0.9% Sodium Chloride 1000 ml [Nss] 1,000 ml IV BOLUS
Ketorolac [Toradol] 15 mg IV NOW STA
Ondansetron Injectable [Zofran] 4 mg IV NOW STA
11/18/23 18:36
CT Abd/pelvis W Iv Cont Urgent
Comment:
Reason For Exam: llq pain
11/18/23 18:45
Complete Blood Count/With Diff Urgent
Comprehensive Metabolic Panel Urgent
Lipase Stat
Urinalysis Reflex To Culture Urgent
Date Specimen was Collected: 11/18/23
Time Specimen was Collected: 18:38
Urine Microscopic Reflex Cult Urgent
Urine Culture Urgent
HENRIK Source: U
Specimen Description:
Date Specimen was Collected: 11/18/23
Time Specimen was Collected: 18:38
11/19/23 00:28
Ciprofloxacin HCl [Cipro] 500 mg PO NOW STA
11/19/23 00:29
MetroNIDAZOLE [Flagyl] 500 mg PO NOW STA
11/19/23 01:02
Acetaminophen [Tylenol] 1,000 mg .ROUTE .STK-MED ONE
11/19/23 01:03
Acetaminophen [Tylenol] 1,000 mg PO NOW STA
Abnormal Lab Results
11/18/23
18:45
Hgb 11.8 L g/dL
(12.0-16.0)
Hct 35.4 L %
(37.0-47.0)
MCV 80.6 L fL
(81.0-99.0)
MCH 26.9 L pg
(27.0-31.0)
RDW 14.6 H %
(11.5-14.5)
Absolute Neuts (auto) 6.9 H 10^3/uL
(1.4-6.5)
Absolute Monos (auto) 0.9 H 10^3/uL
(0.1-0.6)
Carbon Dioxide 20 L mmol/L
(22-30)
Glucose 149 H mg/dl
(70-99)
Lipase 368 H U/L
(23-300)
Leukocyte Esterase Rfl 1+ A
(Negative)
Urine WBC (Reflex) 11-15 A /HPF
(0-5)
Urine Bacteria (Reflex) Few A
(Negative)
11/18/23 18:45
11/18/23 18:45
Vital Signs
Initial and Last Documented VS:
Initial Vital Signs
Temp Pulse Resp BP Pulse Ox
100.0 F 106 18 135/75 95
11/18/23 17:30 11/18/23 17:30 11/18/23 17:30 11/18/23 17:30 11/18/23 17:30
Last Documented Vital Signs
Temp Pulse Resp BP Pulse Ox
98.9 F 84 17 127/67 96
11/18/23 23:23 11/18/23 23:23 11/18/23 23:23 11/18/23 22:33 11/18/23 22:33
<Tee Durham PA-C - Last Filed: 11/18/23 18:41>
MDM/Problems Addressed
Differential Diagnosis Includes:
Left lower abdominal pain. Consider diverticulitis versus viral illness versus bowel obstruction. Check blood work for electrolyte abnormality. Patient would benefit from imaging. Fluids Toradol Zofran ordered for symptoms. Check urine and
stool cultures
<SAHIL Adler - Last Filed: 11/19/23 01:18>
MDM/Problems Addressed
MDM/Problems Addressed:
Received signout. CAT scan does show mild acute diverticulitis. Patient also has had some urinary symptoms urinalysis reviewed: 11�15 white blood cells. Patient has multiple allergies including penicillin we will treat with Cipro Flagyl to treat
both diverticulitis and UTI with close outpatient follow-up with family doctor as well as GI and her urologist.
Patient is well-appearing nontoxic afebrile normal white count stable normal kidney function. Patient has multiple allergies but reports she cannot take Cipro as she has taken that in the past without any problems. She is allergic to penicillins.
Saloni BAXTER
<SAHIL Adler - Last Filed: 11/19/23 01:18>
*Radiology
Radiology exam reviewed: radiology read reviewed
*Critical Care Note
Total Time (30-74mins, 75-104mins- exclusive of procedures): Not Applicable
ED Attending Note
<Tee Durham PA-C - Last Filed: 11/18/23 18:41>
-
Portions of this chart may have been created with voice recognition software.� Occasional wrong word or��sound alike� substitutions may have occurred due to the inherent limitations of voice recognition software.
Discharge Plan
Departure
Patient Disposition: Home (Routine Discharge)
Date of Disposition: 11/19/23
Time of Disposition: 00:29
Patient with high blood pressure during this ER visit?: Yes
Condition: Fair
Covid-19: Not Applicable
Discharge Problem:
Diverticulitis, UTI (urinary tract infection)
Instructions: Diverticulitis (DC), Urinary Tract Infection, Adult ED, BLOOD PRESSURE
Prescriptions:
New
ciprofloxacin HCl [Cipro] 500 mg tablet
500 mg PO BID Qty: 20 0RF
metronidazole 500 mg tablet
500 mg PO Q8H Qty: 30 0RF
No Action
hydromorphone 4 MG tablet
2 mg PO Q4HPRN PRN (Reason: migraines)
tizanidine 4 MG tablet
4 mg PO HS
trazodone 100 MG tablet
100 mg PO HS
Rx Instructions:
Patient takes 1-3 tabs at bedtime.
propranolol 20 MG tablet
20 mg PO BID
dicyclomine 10 MG capsule
10 mg PO DAILYPRN PRN (Reason: abd pains)
Dupixent Syringe 300 MG/2 ML syringe
200 mg SQ Q2W
Aimovig Autoinjector 70 MG/ML auto-injector
70 mg SQ MONTHLY
ketorolac 10 MG tablet
10 mg PO Q6HPRN PRN (Reason: headache) Qty: 20 0RF
rosuvastatin 20 MG tablet
20 mg PO QPM
Myrbetriq 25 MG tablet extended release 24 hr
25 mg PO HS
prochlorperazine maleate 5 MG tablet
5 mg PO Q6HPRN PRN (Reason: nausea)
clonazepam 0.5 MG tablet
1 mg PO HS
olanzapine 5 MG tablet
5 mg PO DAILYPRN PRN (Reason: migraines)
ergocalciferol (vitamin D2) 50,000 UNITS capsule
50,000 units PO FR
lisinopril 2.5 MG tablet
2.5 mg PO HS
carbidopa-levodopa 50-200 mg Tablet Extended Release
1 tab PO HS
zonisamide 100 mg Capsule
100 mg PO HS
methenamine hippurate [Hiprex] 1 gram Tablet
1 g PO Q12H
mexiletine 250 mg Capsule
500 mg PO BID
sumatriptan 20 mg/actuation [place],Non-Aerosol
20 mg INTRANASAL Q2H PRN (Reason: migraines)
carbidopa-levodopa 25-100 mg Tablet
1.5 tab PO TID
cyclosporine [Restasis] 0.05 % Dropperette
1 drp BOTH EYES Q12H
Humalog KwikPen Insulin 200 unit/mL (3 mL) Insulin Pen
14 - 22 sliding scale dose SC AC
Patient Comments:
took 20 units 05/06/ dinnertime
Ubrelvy 100 mg Tablet
100 mg PO DAILYPRN PRN (Reason: migraines)
tamsulosin [Flomax] 0.4 mg capsule
0.4 mg PO QPM
ibuprofen 800 mg Tablet
800 mg PO Q6H PRN (Reason: pain)
meclizine 25 mg Tablet
25 mg PO TID PRN (Reason: Dizziness)
metformin 500 mg Tablet Extended Release 24 Hr
500 mg PO TID
PreserVision AREDS-2 250-90-40-1 mg Capsule
1 tab PO BID
insulin degludec [Tresiba FlexTouch U-100] 100 unit/mL (3 mL) Insulin Pen
90 unit SC HS
Patient Comments:
44 units 2130 on 05/06/23
ciprofloxacin HCl 500 mg tablet
500 mg PO Q12H 10 Days Qty: 20 0RF
Probiotic 3 billion cell capsule
3,000 mmu cells PO DAILY Qty: 30 0RF
vancomycin 250 mg Capsule
250 mg PO QID
Patient Comments:
USED PREVENTATIVELY WHENEVER GIVEN ANTIBIOTICS.
oxycodone-acetaminophen [Percocet] 5-325 mg Tablet
1 tab PO Q4H PRN (Reason: PAIN)
phenazopyridine [Pyridium] 100 mg Tablet
200 mg PO TID
ondansetron 4 mg tablet,disintegrating
8 mg PO Q8H PRN (Reason: nausea and vomiting)
Referrals:
Kimberlyn Correa MD [Family Provider] -
Activity Restrictions/Additional Instructions:
As discussed you have diverticulitis as well as a urinary tract infection. Cipro and Flagyl prescriptions were sent to your pharmacy take as directed for the next 10 days. Follow-up close with your family doctor in the next several days as well as
your GI specialist and urologist. Return if any worsening of symptoms of worsening abdominal nausea vomiting fever chills back pain or any further concerns
Interventions
Interventions:
*Risk Screen - Suicide Last Done: 11/18/23 17:30
*General Assessment Last Done: 11/18/23 17:30
*Neglect/Abuse Screening Last Done: 11/18/23 17:30
ED- Fall Risk Assessment Last Done: 11/18/23 23:15
*ED COVID-19 Vaccine History Last Done: 11/18/23 17:30
IF-[id number]-[id number] Assessment Last Done: 11/18/23 23:15
Discharge Date and Time
Print Language: MALTESE
[2023-11-18] MEDS: NSS 1000 IV (18:43)
[2023-11-18] MEDS: TORADOL 15 MG IV (18:43)
[2023-11-18] MEDS: ZOFRAN 4 MG IV (18:43)
[2023-11-18 18:51] VITALS: BP 122/65
[2023-11-18 18:59] LABS: Urine Albumin Negative (Neg - Trace); Urine Bilirubin Negative (Negative); Urine Character Clear (Clear); Urine Color Yellow; Urine Glucose Negative (Negative); Urine Ketone Negative (Negative); Urine Leukocyte 1+ (Negative); Urine Nitrite Negative (Negative); Urine Occult Blood Negative (Negative); Urine Specific Gravity 1.015 (<1.030); Urine Urobilinogen Negative (Neg - 1+)
[2023-11-18 19:00] VITALS: BP 126/71
[2023-11-18 19:13] LABS: Urine Amorphous Seen
[2023-11-18 19:14] LABS: Urine Bacteria Few (Negative); Urine Red Blood Cell 0-2 /HPF (0-2)
[2023-11-18 19:24] LABS: % Basophils 0.7 % (0-2); % Eosinophils 2.8 % (0-6); % Immature Granulocytes 0.4 % (0-0.5); % Lymphocytes 22.3 % (20.5-51.1); % Monocytes 8.4 % (1.7-9.3); % Neutrophils 65.4 % (42.2-75.2); Absolute Basophils 0.1 10^3/uL (0-0.2); Absolute Eosinophils 0.3 10^3/uL (0-0.7); Absolute Lymphocytes 2.4 10^3/uL (1.2-3.4); Absolute Monocytes 0.9 10^3/uL (0.1-0.6); Absolute Neutrophils 6.9 10^3/uL (1.4-6.5); Hematocrit 35.4 % (37.0-47.0); Hemoglobin 11.8 g/dL (12.0-16.0); Mean Corp Hgb Conc. 33.3 g/dL (33.0-37.0); Mean Corpuscular Hgb 26.9 pg (27.0-31.0); Mean Corpuscular Volume 80.6 fL (81.0-99.0); Mean Platelet Volume 9.1 fL (7.4-10.4); Nucleated Red Blood Cells % 0 %; Platelet Count 317 10^3/uL (130-400); Red Blood Cell Count 4.39 10^6/uL (4.20-5.40); Red Cell Dist. Width 14.6 % (11.5-14.5); White Blood Cell Count 10.5 10^3/uL (4.8-10.8)
[2023-11-18 19:38] LABS: Lipase 368 U/L (23-300)
[2023-11-18 19:41] LABS: ALT (SGPT) 30 U/L (0-35); AST (SGOT) 29 U/L (14-36); Albumin 4.7 g/dl (3.5-5.0); Alkaline Phosphatase 58 U/L (38-126); Blood Urea Nitrogen 14 mg/dl (7-17); Calcium 10.1 mg/dl (8.4-10.2); Carbon Dioxide 20 mmol/L (22-30); Chloride 105 mmol/L (98-107); Glucose 149 mg/dl (70-99); Potassium 4.2 mmol/L (3.5-5.1); Sodium 142 mmol/L (135-145); Total Bilirubin 0.4 mg/dl (0.2-1.3); Total Protein 7.2 g/dl (6.3-8.2); eGFR > 60.00
[2023-11-18 20:01] VITALS: BP 123/65
[2023-11-18 22:33] VITALS: BP 127/67
[2023-11-18 23:00] VITALS: BP 116/74
[2023-11-19] VITALS: BP 120/68
[2023-11-19] MEDS: FLAGYL 500 MG PO (00:50)
[2023-11-19] MEDS: CIPRO 500 MG PO (00:53)
[2023-11-19] MEDS: TYLENOL 1000 MG PO (01:03)
== END 2023-11-19 01:05 | disposition home or self-care (01) ==
LOC: EMR 17:28
PROVIDERS: Physician Assistant; EMERGENCY PHYSICIAN Emergency Medicine; FAMILY PHYSICIAN Internal Medicine
DX: R10.32 Left lower quadrant pain (principal); R11.2 Nausea with vomiting, unspecified; R19.7 Diarrhea, unspecified
CPT/HCPCS: 99284; 96374; 96375; 96361; 74177; 80053; 81003; 81015; 83690; 85025; 87086; Q9967

== ENCOUNTER → 2023-12-20 12:53 | Outpatient (REF) | payer BC, SELFPAY | LOC: HWWDC 12:53 | PROVIDERS: ATTENDING PHYSICIAN Obstetrics & Gynecology; FAMILY PHYSICIAN Internal Medicine | DX: Z12.31 Encounter for screening mammogram for malignant neoplasm of breast (principal) | CPT/HCPCS: 77063; 77067 ==

== ENCOUNTER → 2024-01-16 12:49 | Outpatient (REF) | payer BC, SELFPAY | LOC: HWRAD 12:49 | PROVIDERS: ATTENDING PHYSICIAN Internal Medicine; REFERRING PHYSICIAN Internal Medicine Endocrinology, Diabetes & Metabolism | DX: Z78.0 Asymptomatic menopausal state (principal) | CPT/HCPCS: 77080 ==

== ENCOUNTER → 2024-03-02 14:06 | Outpatient (REF) | payer BC, SELFPAY | LOC: HWRAD 14:06 | PROVIDERS: ATTENDING PHYSICIAN Internal Medicine Rheumatology; FAMILY PHYSICIAN Internal Medicine | DX: M25.511 Pain in right shoulder (principal); M25.512 Pain in left shoulder; M54.2 Cervicalgia; M54.9 Dorsalgia, unspecified | CPT/HCPCS: 72040; 73030 ==

== ENCOUNTER 2024-05-03 13:13 | Emergency (ER) | payer BC, SELFPAY ==
[2024-05-03 13:18] VITALS: BMI 32.0
--- NOTE | 2024-05-03 15:31 | ED.GENMED ---
History of Present Illness
<Leni Mercado PA-C - Last Filed: 05/04/24 07:15>
General
Chief Complaint: Headache
Source: patient
Exam Limitations: none
Time Seen by Provider: 05/03/24 15:15
History of Present Illness
History of Present Illness:
58yoF with a history of chronic migraines, Parkinson's disease, type 2 diabetes, obesity, and hyperlipidemia presenting with her significant other for evaluation of a headache x 1 week. Her headache feels similar to her previous migraines although
the location is slightly different. She typically has pain behind her right eye which she is having but she also has pain at the top of her head. She currently rates her pain as a 9/10 in severity. She also reports photophobia and nausea. Patient
has tried several home medications including sumatriptan, intranasal DHE, Ubrelvy, Toradol, and Zyprexa without any relief. Additionally, she reports urinary frequency and believes she may have a UTI. No fevers. She was recently hospitalized in
[place] about a month ago for lidocaine infusions for an intractable migraine. Her neurologist is Dr. Louis in [place].
Past History
<Leni Mercado PA-C - Last Filed: 05/04/24 07:15>
Past History
ED Past Medical History: Asthma, Hypercholesterolemia, NIDDM and Other (Migraine headaches, Kidney stones, Diverticulosis, pseudotumor cerebri, fibromyalgia, C. difficile, irritable bowel syndrome, sleep apnea Parkinson's.)
ED Past Surgical History: Appendectomy, Cholecystectomy, , Urological (kidney stone remval) and Other (sinus surgery)
Social History
Tobacco: Non-smoker
Alcohol: None
Drug: None
Personal:
Living: with family
Employment: Employed
Family History
Family History: Hypertension and Other (Hypercholesterolemia)
Phy Exam
<Leni Mercado PA-C - Last Filed: 05/04/24 07:15>
General Physical Exam
General Presentation: well appearing and no apparent distress
General age: appears stated age
General Skin: warm and dry
General Habitus: normal
ENT Exam
ENT Exam: normocephalic
Additional ENT: No meningismus
Eye Exam
Eye Exam: PERRL and conjunctiva normal
Pulmonary Exam
Pulmonary Exam: no respiratory distress
Neurological Exam
Neurological Exam: alert and other (CN 2-12 grossly intact. 5/5 strength in all extremities. Normal finger to nose and heel to vo bilaterally. )
Esthela Coma Scale
Eye Opening: Spontaneous
Verbal Response: Oriented
Motor Response: Obeys Commands
GCS Total Score: 15
Skin Exam
Skin Exam: normal color and warm/dry
Psychiatric Exam
Psychiatric Exam: normal mood/affect
<SAHIL Adler - Last Filed: 05/03/24 20:23>
Esthela Coma Scale
GCS Total Score: 15
Course
<Leni Mercado PA-C - Last Filed: 05/04/24 07:15>
Orders/Labs/Results
Orders:
Orders
05/03/24 15:28
0.9% Sodium Chloride 1000 ml [Nss] 1,000 ml IV BOLUS
Diphenhydramine [Benadryl] 25 mg IV NOW STA
Ketorolac [Toradol] 15 mg IV NOW STA
Magnesium Sulfate 2 Gram/50 ml [Magnesium Sulfate] 2 gram in 50 ml IV NOW
Metoclopramide [Reglan] 10 mg IV NOW STA
05/03/24 15:43
Urinalysis Reflex To Culture Urgent
Date Specimen was Collected: 05/03/24
Time Specimen was Collected: 15:32
Urine Microscopic Reflex Cult Urgent
Urine Culture Urgent
HENRIK Source: U
Specimen Description:
Date Specimen was Collected: 05/03/24
Time Specimen was Collected: 15:32
05/03/24 16:10
Complete Blood Count/With Diff Urgent
Comprehensive Metabolic Panel Urgent
05/03/24 17:48
Diphenhydramine [Benadryl] 25 mg IV NOW STA
Ketorolac [Toradol] 15 mg IV NOW STA
05/03/24 17:58
Valproate Sodium [Depacon] 1,000 mg 0.9% Sodium Chloride 50 ml [Nss] 50 ml IV NOW
05/03/24 18:26
Nitrofurantoin Monohydrate [Macrobid] 100 mg PO NOW STA
Abnormal Lab Results
05/03/24 05/03/24
15:43 16:10
MCHC 32.3 L g/dL
(33.0-37.0)
Carbon Dioxide 20 L mmol/L
(22-30)
BUN 30 H mg/dl
(7-17)
Glucose 235 H mg/dl
(70-99)
Leukocyte Esterase Rfl 3+ A
(Negative)
Urine WBC (Reflex) 11-15 A /HPF
(0-5)
Urine Glucose 3+ A
(Negative)
Urine Albumin (Reflex) 1+ A
(Neg - Trace)
05/03/24 16:10
05/03/24 16:10
Vital Signs
Initial and Last Documented VS:
Initial Vital Signs
Temp Pulse Resp Pulse Ox
98.0 F 73 18 99
05/03/24 13:18 05/03/24 13:18 05/03/24 13:18 05/03/24 13:18
Last Documented Vital Signs
Temp Pulse Resp BP Pulse Ox
98.0 F 73 18 118/58 97
05/03/24 13:18 05/03/24 13:18 05/03/24 13:18 05/03/24 20:00 05/03/24 20:00
<SAHIL Adler - Last Filed: 05/03/24 20:23>
Orders/Labs/Results
Orders:
Orders
05/03/24 15:28
0.9% Sodium Chloride 1000 ml [Nss] 1,000 ml IV BOLUS
Diphenhydramine [Benadryl] 25 mg IV NOW STA
Ketorolac [Toradol] 15 mg IV NOW STA
Magnesium Sulfate 2 Gram/50 ml [Magnesium Sulfate] 2 gram in 50 ml IV NOW
Metoclopramide [Reglan] 10 mg IV NOW STA
05/03/24 15:43
Urinalysis Reflex To Culture Urgent
Date Specimen was Collected: 05/03/24
Time Specimen was Collected: 15:32
Urine Microscopic Reflex Cult Urgent
Urine Culture Urgent
HENRIK Source: U
Specimen Description:
Date Specimen was Collected: 05/03/24
Time Specimen was Collected: 15:32
05/03/24 16:10
Complete Blood Count/With Diff Urgent
Comprehensive Metabolic Panel Urgent
05/03/24 17:48
Diphenhydramine [Benadryl] 25 mg IV NOW STA
Ketorolac [Toradol] 15 mg IV NOW STA
05/03/24 17:58
Valproate Sodium [Depacon] 1,000 mg 0.9% Sodium Chloride 50 ml [Nss] 50 ml IV NOW
05/03/24 18:26
Nitrofurantoin Monohydrate [Macrobid] 100 mg PO NOW STA
Abnormal Lab Results
05/03/24 05/03/24
15:43 16:10
MCHC 32.3 L g/dL
(33.0-37.0)
Carbon Dioxide 20 L mmol/L
(22-30)
BUN 30 H mg/dl
(7-17)
Glucose 235 H mg/dl
(70-99)
Leukocyte Esterase Rfl 3+ A
(Negative)
Urine WBC (Reflex) 11-15 A /HPF
(0-5)
Urine Glucose 3+ A
(Negative)
Urine Albumin (Reflex) 1+ A
(Neg - Trace)
05/03/24 16:10
05/03/24 16:10
Vital Signs
Initial and Last Documented VS:
Initial Vital Signs
Temp Pulse Resp Pulse Ox
98.0 F 73 18 99
05/03/24 13:18 05/03/24 13:18 05/03/24 13:18 05/03/24 13:18
Last Documented Vital Signs
Temp Pulse Resp BP Pulse Ox
98.0 F 73 18 118/58 97
05/03/24 13:18 05/03/24 13:18 05/03/24 13:18 05/03/24 20:00 05/03/24 20:00
<Leni Mercado PA-C - Last Filed: 05/04/24 07:15>
MDM/Problems Addressed
Differential Diagnosis Includes:
58yoF here with a headache x 1 week. Hx of chronic migraines and this feels the same. Using her usual meds without any relief. No fevers, neck stiffness, vomiting, head trauma. Also c/o urinary frequency. VSS. She is well appearing in no distress.
No focal neuro deficits or nuchal rigidity noted. Differential diagnosis includes but is not limited to: migraine, tension headache, doubt subarachnoid hemorrhage, doubt meningismus
Initial ED plan: Check CBC, CMP, and UA. No indication for head CT, patient also requesting to defer head imaging. IV migraine cocktail and reassess.
<SAHIL Adler - Last Filed: 05/03/24 20:23>
MDM/Problems Addressed
Differential Diagnosis Includes:
58yoF here with a headache x 1 week. Hx of chronic migraines and this feels the same. Using her usual meds without any relief. No fevers, neck stiffness, vomiting, head trauma. Also c/o urinary frequency. VSS. She is well appearing in no distress.
No focal neuro deficits or nuchal rigidity noted. Differential diagnosis includes but is not limited to: migraine, tension headache, doubt subarachnoid hemorrhage, doubt meningismus
Initial ED plan: Check CBC, CMP, and UA. No indication for head CT, patient also requesting to defer head imaging. IV migraine cocktail and reassess.
Received signout on patient. Patient no acute distress well-appearing. Patient feeling much better feels well after go home. Patient does have a UTI, given first dose of Macrobid here in the ER prescription sent to pharmacy.
<SAHIL Adler - Last Filed: 05/03/24 20:23>
*Critical Care Note
Total Time (30-74mins, 75-104mins- exclusive of procedures): Not Applicable
ED Attending Note
<Leni Mercado PA-C - Last Filed: 05/04/24 07:15>
-
Portions of this chart may have been created with voice recognition software.� Occasional wrong word or��sound alike� substitutions may have occurred due to the inherent limitations of voice recognition software.
Discharge Plan
Departure
Patient Disposition: Home (Routine Discharge)
Date of Disposition: 05/03/24
Time of Disposition: 19:55
Patient with high blood pressure during this ER visit?: No
Condition: Fair
Covid-19: Not Applicable
Discharge Problem:
Migraine, UTI (urinary tract infection)
Instructions: Urinary tract infections in adults, Migraines (DC)
Prescriptions:
New
nitrofurantoin monohyd/m-cryst [Macrobid] 100 mg capsule
100 mg PO Q12H 7 Days Qty: 14 0RF
No Action
hydromorphone 4 MG tablet
2 mg PO Q4HPRN PRN (Reason: migraines)
tizanidine 4 MG tablet
4 mg PO HS
trazodone 100 MG tablet
100 mg PO HS
Rx Instructions:
Patient takes 1-3 tabs at bedtime.
propranolol 20 MG tablet
20 mg PO BID
dicyclomine 10 MG capsule
10 mg PO DAILYPRN PRN (Reason: abd pains)
Dupixent Syringe 300 MG/2 ML syringe
200 mg SQ Q2W
Aimovig Autoinjector 70 MG/ML auto-injector
70 mg SQ MONTHLY
ketorolac 10 MG tablet
10 mg PO Q6HPRN PRN (Reason: headache) Qty: 20 0RF
rosuvastatin 20 MG tablet
20 mg PO QPM
Myrbetriq 25 MG tablet extended release 24 hr
25 mg PO HS
prochlorperazine maleate 5 MG tablet
5 mg PO Q6HPRN PRN (Reason: nausea)
clonazepam 0.5 MG tablet
1 mg PO HS
olanzapine 5 MG tablet
5 mg PO DAILYPRN PRN (Reason: migraines)
ergocalciferol (vitamin D2) 50,000 UNITS capsule
50,000 units PO FR
lisinopril 2.5 MG tablet
2.5 mg PO HS
carbidopa-levodopa 50-200 mg Tablet Extended Release
1 tab PO HS
zonisamide 100 mg Capsule
100 mg PO HS
methenamine hippurate [Hiprex] 1 gram Tablet
1 g PO Q12H
mexiletine 250 mg Capsule
500 mg PO BID
sumatriptan 20 mg/actuation [place],Non-Aerosol
20 mg INTRANASAL Q2H PRN (Reason: migraines)
carbidopa-levodopa 25-100 mg Tablet
1.5 tab PO TID
cyclosporine [Restasis] 0.05 % Dropperette
1 drp BOTH EYES Q12H
Humalog KwikPen Insulin 200 unit/mL (3 mL) Insulin Pen
14 - 22 sliding scale dose SC AC
Patient Comments:
took 20 units 05/07/23 dinnertime
Ubrelvy 100 mg Tablet
100 mg PO DAILYPRN PRN (Reason: migraines)
tamsulosin [Flomax] 0.4 mg capsule
0.4 mg PO QPM
ibuprofen 800 mg Tablet
800 mg PO Q6H PRN (Reason: pain)
meclizine 25 mg Tablet
25 mg PO TID PRN (Reason: Dizziness)
metformin 500 mg Tablet Extended Release 24 Hr
500 mg PO TID
PreserVision AREDS-2 250-90-40-1 mg Capsule
1 tab PO BID
insulin degludec [Tresiba FlexTouch U-100] 100 unit/mL (3 mL) Insulin Pen
90 unit SC HS
Patient Comments:
44 units 2130 on 05/06/23
ciprofloxacin HCl 500 mg tablet
500 mg PO Q12H 10 Days Qty: 20 0RF
Probiotic 3 billion cell capsule
3,000 mmu cells PO DAILY Qty: 30 0RF
vancomycin 250 mg Capsule
250 mg PO QID
Patient Comments:
USED PREVENTATIVELY WHENEVER GIVEN ANTIBIOTICS.
oxycodone-acetaminophen [Percocet] 5-325 mg Tablet
1 tab PO Q4H PRN (Reason: PAIN)
phenazopyridine [Pyridium] 100 mg Tablet
200 mg PO TID
ondansetron 4 mg tablet,disintegrating
8 mg PO Q8H PRN (Reason: nausea and vomiting)
ciprofloxacin HCl [Cipro] 500 mg tablet
500 mg PO BID Qty: 20 0RF
metronidazole 500 mg tablet
500 mg PO Q8H Qty: 30 0RF
Referrals:
Kimberlyn Correa MD [Family Provider] -
Activity Restrictions/Additional Instructions:
As discussed please follow-up with your specialist for migraines for reevaluation. Also in addition you have a urinary tract infection and antibiotic was sent to your pharmacy. take as directed. You may start this tomorrow as you were given the
first dose here in the ER. Follow-up with your family doctor in the next several days for reevaluation. Return if any worsening of symptoms.
Interventions
Interventions:
*Risk Screen - Suicide Last Done: 05/03/24 13:18
*General Assessment Last Done: 05/03/24 13:18
*Neglect/Abuse Screening Last Done: 05/03/24 15:46
ED- Fall Risk Assessment Last Done: 05/03/24 20:15
*ED COVID-19 Vaccine History Last Done: 05/03/24 13:18
*Nursing Disposition Last Done: 05/03/24 20:15
ED- Neurological Assessment Last Done: 05/03/24 15:46
Discharge Date and Time
Discharge Date/Time: 05/03/24 20:18
Print Language: [id number]
[2024-05-03 15:53] LABS: Urine Albumin 1+ (Neg - Trace); Urine Bilirubin Negative (Negative); Urine Character Clear (Clear); Urine Color Yellow; Urine Glucose 3+ (Negative); Urine Ketone Negative (Negative); Urine Leukocyte 3+ (Negative); Urine Nitrite Negative (Negative); Urine Occult Blood Negative (Negative); Urine Urobilinogen Negative (Neg - 1+)
[2024-05-03 16:04] LABS: Urine Red Blood Cell 0-2 /HPF (0-2); Urine Squamous Cell 0-2 /LPF (Few)
[2024-05-03 16:08] VITALS: BP 107/53
[2024-05-03] MEDS: BENADRYL 25 MG IV ×2 (16:12→17:57)
[2024-05-03] MEDS: NSS 1000 IV (16:14)
[2024-05-03] MEDS: TORADOL 15 MG IV ×2 (16:15→17:57)
[2024-05-03] MEDS: REGLAN 10 MG IV (16:16)
[2024-05-03] MEDS: MAGNESIUM SULFATE 50 IV (16:21)
[2024-05-03 16:45] LABS: % Basophils 0.7 % (0-2); % Eosinophils 5.4 % (0-6); % Immature Granulocytes 0.1 % (0-0.5); % Lymphocytes 33.6 % (20.5-51.1); % Monocytes 5.1 % (1.7-9.3); % Neutrophils 55.1 % (42.2-75.2); Absolute Basophils 0.1 10^3/uL (0-0.2); Absolute Eosinophils 0.4 10^3/uL (0-0.7); Absolute Lymphocytes 2.4 10^3/uL (1.2-3.4); Absolute Monocytes 0.4 10^3/uL (0.1-0.6); Absolute Neutrophils 3.9 10^3/uL (1.4-6.5); Hematocrit 37.1 % (37.0-47.0); Mean Corp Hgb Conc. 32.3 g/dL (33.0-37.0); Mean Corpuscular Volume 86.7 fL (81.0-99.0); Mean Platelet Volume 9.5 fL (7.4-10.4); Nucleated Red Blood Cells % 0 %; Platelet Count 331 10^3/uL (130-400); Red Blood Cell Count 4.28 10^6/uL (4.20-5.40); Red Cell Dist. Width 13.3 % (11.5-14.5)
[2024-05-03 16:49] LABS: ALT (SGPT) 33 U/L (0-35); AST (SGOT) 32 U/L (14-36); Albumin 4.5 g/dl (3.5-5.0); Alkaline Phosphatase 58 U/L (38-126); Blood Urea Nitrogen 30 mg/dl (7-17); Calcium 9.7 mg/dl (8.4-10.2); Carbon Dioxide 20 mmol/L (22-30); Chloride 105 mmol/L (98-107); Estimated Creatinine Clearance 80 ml/min; Glucose 235 mg/dl (70-99); Potassium 4.8 mmol/L (3.5-5.1); Sodium 137 mmol/L (135-145); Total Bilirubin 0.7 mg/dl (0.2-1.3); Total Protein 6.8 g/dl (6.3-8.2); eGFR > 60.00
[2024-05-03 17:00] VITALS: BP 114/52
[2024-05-03 18:00] VITALS: BP 121/58
[2024-05-03] MEDS: DEPACON 60 MG IV (18:22)
[2024-05-03] MEDS: MACROBID 100 MG PO (18:28)
[2024-05-03 19:00] VITALS: BP 122/58
[2024-05-03 20:00] VITALS: BP 118/58
== END 2024-05-03 20:18 | disposition home or self-care (01) ==
LOC: EMR 13:13
PROVIDERS: Physician Assistant; EMERGENCY PHYSICIAN Emergency Medicine; FAMILY PHYSICIAN Internal Medicine
DX: N39.0 Urinary tract infection, site not specified (principal); G43.909 Migraine, unspecified, not intractable, without status migrainosus; R11.0 Nausea; G20.A1 Parkinson's disease without dyskinesia, without mention of fluctuations; E11.9 Type 2 diabetes mellitus without complications; E66.9 Obesity, unspecified; E78.00 Pure hypercholesterolemia, unspecified; G47.30 Sleep apnea, unspecified; J45.909 Unspecified asthma, uncomplicated; K58.9 Irritable bowel syndrome, unspecified; M79.7 Fibromyalgia; G93.2 Benign intracranial hypertension; K57.90 Diverticulosis of intestine, part unspecified, without perforation or abscess without bleeding; Z87.442 Personal history of urinary calculi; Z90.49 Acquired absence of other specified parts of digestive tract; Z88.1 Allergy status to other antibiotic agents; Z88.3 Allergy status to other anti-infective agents; Z88.0 Allergy status to penicillin; Z88.2 Allergy status to sulfonamides; Z88.8 Allergy status to other drugs, medicaments and biological substances; Z91.048 Other nonmedicinal substance allergy status
CPT/HCPCS: 99284; 96365; 96367; 96375 ×3; 96361; 96376 ×2; 80053; 81003; 81015; 85025; 87086

== ENCOUNTER 2024-11-14 08:44 | Emergency (ER) | payer BC, SELFPAY ==
[2024-11-14 08:49] VITALS: BP 117/86
[2024-11-14] MEDS: NSS 1000 IV (11:09)
[2024-11-14] MEDS: REGLAN 10 MG IV (11:10)
[2024-11-14] MEDS: BENADRYL 25 MG IV (11:10)
[2024-11-14] MEDS: TORADOL 15 MG IV (11:10)
[2024-11-14 11:18] LABS: Hematocrit 38.2 % (37.0-47.0); Hemoglobin 12.5 g/dL (12.0-16.0); Mean Corp Hgb Conc. 32.7 g/dL (33.0-37.0); Mean Corpuscular Volume 83.0 fL (81.0-99.0); Nucleated Red Blood Cells % 0 %; Platelet Count 283 10^3/uL (130-400); Red Cell Dist. Width 14.4 % (11.5-14.5)
[2024-11-14 11:42] LABS: ALT (SGPT) 30 U/L (0-35); AST (SGOT) 30 U/L (14-36); Albumin 4.3 g/dl (3.5-5.0); Alkaline Phosphatase 45 U/L (38-126); Blood Urea Nitrogen 20 mg/dl (7-17); Calcium 10.0 mg/dl (8.4-10.2); Carbon Dioxide 19 mmol/L (22-30); Chloride 111 mmol/L (98-107); Glucose 148 mg/dl (70-99); Potassium 4.3 mmol/L (3.5-5.1); Sodium 139 mmol/L (135-145); Total Protein 6.9 g/dl (6.3-8.2); eGFR > 60.00
[2024-11-14] MEDS: MAGNESIUM SULFATE 102 GRAMS IV (12:18)
[2024-11-14] MEDS: FIORICET 1 TAB PO (14:43)
--- NOTE | 2024-11-14 15:10 | ED.GENMED ---
History of Present Illness
General
Chief Complaint: Headache
Source: patient
Exam Limitations: none
Time Seen by Provider: 11/14/24 10:10
Nursing documentation reviewed up to this point in time: agreed with
History of Present Illness
History of Present Illness:
see MDM
Past History
Past History
ED Past Medical History: Asthma, Hypercholesterolemia, NIDDM and Other (Migraine headaches, Kidney stones, Diverticulosis, pseudotumor cerebri, fibromyalgia, C. difficile, irritable bowel syndrome, sleep apnea Parkinson's.)
ED Past Surgical History: Appendectomy, Cholecystectomy, , Urological (kidney stone remval) and Other (sinus surgery)
Social History
Tobacco: Non-smoker
Alcohol: None
Drug: None
Personal:
Living: with family
Employment: Employed
Family History
Family History: Hypertension and Other (Hypercholesterolemia)
Review of Systems
Review of Systems
Allergies reviewed?: Yes
All Other Systems: Not applicable
Phy Exam
Physical Exam
Physical Exam:
see MDM
Course
Orders/Labs/Results
Orders:
Orders
11/14/24 10:40
0.9% Sodium Chloride 1000 ml [Nss] 1,000 ml IV BOLUS
11/14/24 10:45
Diphenhydramine [Benadryl] 25 mg IV NOW STA
Ketorolac [Toradol] 15 mg IV NOW STA
Metoclopramide [Reglan] 10 mg IV NOW STA
11/14/24 11:13
Complete Blood Count/With Diff Urgent
Comprehensive Metabolic Panel Urgent
11/14/24 11:57
Magnesium Sulfate 1 grams 0.9% Sodium Chloride 100 ml [Nss] 100 ml IV NOW
11/14/24 14:07
Butalb/Acetaminophen/Caffeine [Fioricet] 1 tab PO NOW STA
Abnormal Lab Results
11/14/24
11:13
MCHC 32.7 L g/dL
(33.0-37.0)
Eosinophils % 6.1 H %
(0-6)
Chloride 111 H mmol/L
(98-107)
Carbon Dioxide 19 L mmol/L
(22-30)
BUN 20 H mg/dl
(7-17)
Glucose 148 H mg/dl
(70-99)
11/14/24 11:13
11/14/24 11:13
Vital Signs
Initial and Last Documented VS:
Initial Vital Signs
Temp Pulse Resp BP Pulse Ox
37.0 C 86 16 117/86 96
11/14/24 08:49 11/14/24 08:49 11/14/24 08:49 11/14/24 08:49 11/14/24 08:49
Last Documented Vital Signs
Temp Pulse Resp BP Pulse Ox
37.0 C 70 18 113/58 99
11/14/24 08:49 11/14/24 15:26 11/14/24 15:26 11/14/24 15:26 11/14/24 15:26
MDM/Problems Addressed
Differential Diagnosis Includes:
see MDM
MDM/Problems Addressed:
Note:
CHIEF COMPLAINT(S)
Severe headache persisting for two weeks.
HISTORY OF PRESENT ILLNESS
The patient is a 59-year-old female with a history of migraine headaches, presenting with a severe headache that began approximately two weeks ago. The onset of the current headache episode was gradual, and the intensity has been consistent but more
severe than typical for her chronic migraines. The patient rates the pain as a 9 out of 10 on the severity scale, and reports exacerbation with light exposure. She denies any vomiting but mentions nausea. There is no associated new numbness,
weakness, confusion, or speech difficulties, although she notes chronic numbness in her right big toe. The patient has a history of receiving Botox treatment for migraines and is scheduled for another session in 5 days. Her headaches typically
require medical intervention up to four times a year, wherein a combination of magnesium, ketorolac, Benadryl, and one of the regular antiemetic or anti-psychotic medications is administered, though the specific medication was not recalled. The
patient has tried various treatments, including sumatriptan nasal spray, [id number] medications like ibuprofen, and other medications prescribed for migraines, but they have been ineffective during this episode.
Note that the patient does not report a history of idiopathic intracranial hypertension but has no vision changes or positional changes with this headache.
PHYSICAL EXAM
- Neurological exam:
- Noted ptosis in the right eye compared to the left which is chronic
- Facial symmetry intact when asked to close eyes firmly and puff cheeks.
- No new sensory deficits or motor weakness observed.
- Tactile evaluation of the scalp was performed without eliciting additional pain.
- Cranial nerves intact on examination; no changes in vision reported.
GENERAL: Alert , in no apparent distress
HEAD: NCAT
EYE: pupils equal and reactive, no nystagmus, minimal photophobia
NECK: Supple,full rom, nontender
ENT: o/p clr, mmm.
CARDIAC: Regular rate and rhythm . no edema
LUNGS: Clear breath sounds bilaterally, no acute respiratory distress, no wheezes/rales/rhonchi
ABDOMEN: Soft, without focal tenderness, no r/g, no cvat
NEUROLOGICAL: Alert and orientedx 4, mild ptosis of the right eyelid, otherwise cranial nerves intact, she does receive Botox making her forehead less active, 5/5 strength in UE/LE, sensation intact, romberg neg, ambulates without assistance, neg
pronator drift, [id number] normal
SKIN: Warm and dry, skin intact.
MUSCULOSKELETAL: No edema, well perfused.
PSYCH: Normal and appropriate interaction.
PROBLEM LIST
Acute:
- Severe migraine headache
Chronic:
- Recurrent migraine headaches
PLAN
- Order appropriate medications to manage acute migraine episode.
- Consider imaging if the headache does not respond to first-line treatments.
- Continue with Botox treatment as scheduled for migraine management.
DIFFERENTIAL DIAGNOSIS
The Differential Diagnosis includes, in no particular order and is not limited to:
1. Migraine headache with typical aura
2. Tension-type headache
3. Cluster headache
4. Medication-overuse headache
5. Sinusitis
6. Temporal arteritis
7. Pseudotumor cerebri
8. Trigeminal neuralgia
9. Cervicogenic headache
10. Intracranial neoplasm
59-year-old with chronic headaches, says that she gets them daily but with a worsening migraine over the last 2 weeks multiple meds that she tried including Imitrex, Zyprexa, Motrin, Toradol, etc. presents for persistent headache with nausea and
photophobia classic to her previous headaches. The only difference was that she felt additional pain on the top of her head on the right side, the same side as her right eye where she normally gets the pain. Patient has not had any other red flag
symptoms, it gradually began. She is here because none of her treatments at home have worked. She has had neuroimaging many times in the past and says it is been a long time since her MRI but she has had many CT scans and she would like to defer a
CT scan. Her neuroexam was intact other than ptosis of her right eye eyelid, likely due to chronic Botox injections. Patient says this is chronic for her. I did give her her typical migraine cocktail of Toradol, Benadryl, Reglan and then added
magnesium however it took a very long time for the meds to go in, they were placed in a liter bag and her IV line was small due to her having small veins so she did not get as quick of it and improvement of her symptoms. She was down to a 6 out of
10 and when discussing additional treatment she had asked for Dilaudid or morphine which she has had in the past however I prefer to avoid this for chronic migraines and we will try a Fioricet. Patient is eating on reassessment and looks well.
Will reassess her after the Fioricet
1545 - pt reassessed and feels better after fioricet
d/c home
*Pulse Oximetry
SaO2: 96
Oxygen Mode of Delivery: Room air
Patient hypoxic: no (99)
*Critical Care Note
Total Time (30-74mins, 75-104mins- exclusive of procedures): Not Applicable
ED Attending Note
-
Portions of this chart may have been created with voice recognition software.� Occasional wrong word or��sound alike� substitutions may have occurred due to the inherent limitations of voice recognition software.
Discharge Plan
Departure
Patient Disposition: Home (Routine Discharge)
Date of Disposition: 11/14/24
Time of Disposition: 15:30
Patient with high blood pressure during this ER visit?: No
Condition: Fair
Covid-19: Not Applicable
Discharge Problem:
Migraine
Instructions: Migraines (DC)
Prescriptions:
No Action
hydromorphone 4 MG tablet
2 mg PO Q4HPRN PRN (Reason: migraines)
tizanidine 4 MG tablet
4 mg PO HS
trazodone 100 MG tablet
100 mg PO HS
Rx Instructions:
Patient takes 1-3 tabs at bedtime.
propranolol 20 MG tablet
20 mg PO BID
dicyclomine 10 MG capsule
10 mg PO DAILYPRN PRN (Reason: abd pains)
Dupixent Syringe 300 MG/2 ML syringe
200 mg SQ Q2W
Aimovig Autoinjector 70 MG/ML auto-injector
70 mg SQ MONTHLY
ketorolac 10 MG tablet
10 mg PO Q6HPRN PRN (Reason: headache) Qty: 20 0RF
rosuvastatin 20 MG tablet
20 mg PO QPM
Myrbetriq 25 MG tablet extended release 24 hr
25 mg PO HS
prochlorperazine maleate 5 MG tablet
5 mg PO Q6HPRN PRN (Reason: nausea)
clonazepam 0.5 MG tablet
1 mg PO HS
olanzapine 5 MG tablet
5 mg PO DAILYPRN PRN (Reason: migraines)
ergocalciferol (vitamin D2) 50,000 UNITS capsule
50,000 units PO FR
lisinopril 2.5 MG tablet
2.5 mg PO HS
carbidopa-levodopa 50-200 mg Tablet Extended Release
1 tab PO HS
zonisamide 100 mg Capsule
100 mg PO HS
methenamine hippurate [Hiprex] 1 gram Tablet
1 g PO Q12H
mexiletine 250 mg Capsule
500 mg PO BID
sumatriptan 20 mg/actuation [place],Non-Aerosol
20 mg INTRANASAL Q2H PRN (Reason: migraines)
carbidopa-levodopa 25-100 mg Tablet
1.5 tab PO TID
cyclosporine [Restasis] 0.05 % Dropperette
1 drp BOTH EYES Q12H
Humalog KwikPen Insulin 200 unit/mL (3 mL) Insulin Pen
14 - 22 sliding scale dose SC AC
Patient Comments:
took 20 units 3/5/24 dinnertime
Ubrelvy 100 mg Tablet
100 mg PO DAILYPRN PRN (Reason: migraines)
tamsulosin [Flomax] 0.4 mg capsule
0.4 mg PO QPM
ibuprofen 800 mg Tablet
800 mg PO Q6H PRN (Reason: pain)
meclizine 25 mg Tablet
25 mg PO TID PRN (Reason: Dizziness)
metformin 500 mg Tablet Extended Release 24 Hr
500 mg PO TID
PreserVision AREDS-2 250-90-40-1 mg Capsule
1 tab PO BID
insulin degludec [Tresiba FlexTouch U-100] 100 unit/mL (3 mL) Insulin Pen
90 unit SC HS
Patient Comments:
44 units 2130 on 05/06/23
ciprofloxacin HCl 500 mg tablet
500 mg PO Q12H 10 Days Qty: 20 0RF
Probiotic 3 billion cell capsule
3,000 mmu cells PO DAILY Qty: 30 0RF
vancomycin 250 mg Capsule
250 mg PO QID
Patient Comments:
USED PREVENTATIVELY WHENEVER GIVEN ANTIBIOTICS.
oxycodone-acetaminophen [Percocet] 5-325 mg Tablet
1 tab PO Q4H PRN (Reason: PAIN)
phenazopyridine [Pyridium] 100 mg Tablet
200 mg PO TID
ondansetron 4 mg tablet,disintegrating
8 mg PO Q8H PRN (Reason: nausea and vomiting)
ciprofloxacin HCl [Cipro] 500 mg tablet
500 mg PO BID Qty: 20 0RF
metronidazole 500 mg tablet
500 mg PO Q8H Qty: 30 0RF
nitrofurantoin monohyd/m-cryst [Macrobid] 100 mg capsule
100 mg PO Q12H 7 Days Qty: 14 0RF
Referrals:
Kimberlyn Correa MD [Family Provider, Internal Medicine] - Follow up in 2-3 days
Activity Restrictions/Additional Instructions:
We treated you with migraine medications to help with your headache. Please follow-up with your neurologist. Return for any severe worsening of symptoms or any concerns.
Interventions
Interventions:
*Risk Screen - Suicide Last Done: 11/14/24 11:15
*General Assessment Last Done: 11/14/24 11:15
*Neglect/Abuse Screening Last Done: 11/14/24 11:15
*ED- Fall Risk Assessment Last Done: 11/14/24 11:15
*ED COVID-19 Vaccine History Last Done: 11/14/24 16:00
*Nursing Disposition Last Done: 11/14/24 16:00
ED- Neurological Assessment Last Done: 11/14/24 11:14
Discharge Date and Time
Discharge Date/Time: 11/14/24 16:00
Print Language: LIBYAN
[2024-11-14 15:26] VITALS: BP 113/58
== END 2024-11-14 16:00 | disposition home or self-care (01) ==
LOC: EMR 08:44
PROVIDERS: Physician Assistant; EMERGENCY PHYSICIAN Emergency Medicine; FAMILY PHYSICIAN Internal Medicine
DX: G43.909 Migraine, unspecified, not intractable, without status migrainosus (principal); J45.909 Unspecified asthma, uncomplicated; E78.00 Pure hypercholesterolemia, unspecified; E11.9 Type 2 diabetes mellitus without complications; G20.A1 Parkinson's disease without dyskinesia, without mention of fluctuations; Z90.49 Acquired absence of other specified parts of digestive tract
CPT/HCPCS: 96365; 96375; 96361; 99284; 80053; 85025

== ENCOUNTER → 2025-01-26 11:51 | Outpatient (REF) | payer BC, SELFPAY | LOC: HWWDC 11:51 | PROVIDERS: ATTENDING PHYSICIAN Internal Medicine | DX: Z12.31 Encounter for screening mammogram for malignant neoplasm of breast (principal) | CPT/HCPCS: 77063; 77067 ==